=== PATIENT | male | born 1985 | race Caucasian/White ===

== ENCOUNTER 2018-09-27 23:40 | Inpatient (IN) | payer MEDICARE, OTHER ==
[~2018-09-27] VITALS: Ht 185.4 cm; Wt 104.0 kg
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
[2018-09-28] VITALS (7 sets, daily range): BP systolic 102–140; BP diastolic 61–87
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
--- NOTE | 2018-09-28 00:02 | NUR ---
ED Nurse Note: ERMD AT BEDSIDE FOR WOUND CARE
--- NOTE | 2018-09-28 00:10 | NUR ---
ED Nurse Note: iv access established. blood and urine collected; sent down to lab.
[2018-09-28 00:24] LABS: BASOPHILS % (AUTO) 0.8 % (0.0-2.0); HEMATOCRIT 49.5 % (42.0-52.0); HEMOGLOBIN 16.7 G/DL (14.2-18.0); LYMPHOCYTES % (AUTO) 24.7 % (20.0-45.0); MEAN CORPUSCULAR VOLUME 92 FL (80-99); MONOCYTES % (AUTO) 5.9 % (1.0-10.0); NEUTROPHILS % (AUTO) 67.6 % (45.0-75.0); PLATELET COUNT 358 K/UL (150-450); RED CELL DISTRIBUTION WIDTH 12.8 % (11.6-14.8); WHITE BLOOD COUNT 12.7 K/UL (4.8-10.8)
[2018-09-28 00:28] LABS: APPEARANCE,URINE CLEAR; BILIRUBIN, URINE NEGATIVE (NEGATIVE); COLOR,URINE PALE YELLOW; GLUCOSE, URINE (UA) NEGATIVE (NEGATIVE); KETONES,URINE NEGATIVE (NEGATIVE); LEUKOCYTE ESTERASE ,URINE NEGATIVE (NEGATIVE); NITRITE,URINE NEGATIVE (NEGATIVE); PH,URINE 7 (4.5-8.0); PROTEIN,URINE NEGATIVE (NEGATIVE); UROBILINOGEN,URINE NORMAL MG/DL (0.0-1.0)
[2018-09-28 00:30] LABS: ANION GAP 11 mmol/L (5-15); BLOOD UREA NITROGEN 12 mg/dL (7-18); CALCIUM 8.5 MG/DL (8.5-10.1); CARBON DIOXIDE 25 MMOL/L (21-32); CHLORIDE 111 MMOL/L (98-107); CREATININE 1.1 MG/DL (0.55-1.30); POTASSIUM 3.2 MMOL/L (3.5-5.1); SODIUM 147 MMOL/L (136-145)
[2018-09-28 00:35] LABS: ALANINE AMINOTRANSFERASE 214 U/L (12-78); ALBUMIN/GLOBULIN RATIO 1.1 (1.0-2.7); ALKALINE PHOSPHATASE 141 U/L (46-116); ASPARTATE AMINO TRANSFERASE 101 U/L (15-37); BILIRUBIN,TOTAL 0.4 MG/DL (0.2-1.0)
--- NOTE | 2018-09-28 01:00 | NUR ---
ED Nurse Note: patient resting comfortably in bed with nad. vss. respirations even and unlabored.
--- NOTE | 2018-09-28 02:56 | NUR ---
ED Nurse Note: MRSA VRE CRE SWAB COLLECTED; SENT DOWN TO LAB. BELONGINGS LIST COMPLETED.
--- NOTE | 2018-09-28 03:10 | NUR ---
NURSE NOTES: Received report from ER nurse Ramila White RN over the phone.
[2018-09-28] MEDS ORDERED: NICODERM CQ1 EAC3 TD (03:25)
[2018-09-28] MEDS ORDERED: BUSPAR10 MG ORAL (03:25)
[2018-09-28] MEDS ORDERED: INDERAL LA60 MG ORAL (03:25)
[2018-09-28] MEDS ORDERED: SEROQUEL200 MG ORAL (03:25)
[2018-09-28] MEDS ORDERED: ACETAMINOPHEN325 M1 ORAL (03:25)
[2018-09-28] MEDS ORDERED: NORCO 5-325 TA1 EACH ORAL (03:25)
[2018-09-28] MEDS ORDERED: BUPROPION XL300 MG ORAL (03:25)
[2018-09-28] MEDS ORDERED: ADDERAL20 MG ORAL (03:25)
[2018-09-28] MEDS ORDERED: TUMS300 MG PO (03:25)
[2018-09-28] MEDS ORDERED: MILK OF MA2400 MG/10 ORAL (03:25)
[2018-09-28] MEDS ORDERED: IBUPROFEN600 MG ORAL (03:25)
--- NOTE | 2018-09-28 03:30 | NUR ---
TRANSFER TO FLOOR: Patient transferred to [address] as ordered, per md lisa. Report given to allan don. belongings list completed with receiving rn.
--- NOTE | 2018-09-28 03:35 | NUR ---
NURSE NOTES: Received patient via biotechnician. Patient A&Ox1, to name, confused. Ambulatory. On room air, no signs of distress or labored breathing. Iv intact, patent, and saline locked. Belongings checked and accounted. Bed in lowest position with call light in reach. Will contact MD for orders.
[2018-09-28] MEDS ORDERED: LORazepam Inj 2mg/ml 1ml IV PRN (07:00)
[2018-09-28] MEDS ORDERED: Miralax 17gm pkt ORAL PRN (07:00)
--- NOTE | 2018-09-28 08:03 | NUR ---
NURSE NOTES: Received report from MAN [place]. Pt in bed, awake, talkative, confused, provided reorientation to pt, discussed plan of care for pt, no apparent distress noted, bed in lowest position, call light within reach.
--- NOTE | 2018-09-28 08:24 | NUR ---
HAND-OFF: Report given to MAN Poe.
--- NOTE | 2018-09-28 08:39 | NUR ---
NURSE NOTES: Notified Dr.Hung Bliss 3.2, asked about replacing
[2018-09-28] MEDS: Folic Acid 1 MG, Magnesium Sulfate 2,000 MG, Multivitamin - 12 Injection 10 ML in NS w/... IV SCH (09:12)
[2018-09-28] MEDS: Thiamine 100mg in D5W 55ml IVPB SCH (09:12)
[2018-09-28] MEDS: Morphine Sulfate 2mg/ml Inj(IV/IM USE ONLY) IVP PRN ×4 (09:14→22:03)
[2018-09-28] MEDS: Heparin 5000 units/ml inj SUBQ SCH ×2 (09:24→21:06)
[2018-09-28] MEDS ORDERED: Milk of Magnesia 30ml Ud ORAL PRN (11:00)
[2018-09-28] MEDS: BusPIRone 5mg Tab ORAL SCH ×2 (11:30→17:21)
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
[2018-09-28] MEDS: BuPROPion XL 150mg tab ORAL SCH (12:34)
--- NOTE | 2018-09-28 16:53 | NUR ---
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 SI:ALCOHOL INTOXICATION . LACERATION OF RIGHT FOREARM VS: BP 140/80, P 82, T 98.4, RR 20, SpO2 97 WBC 12.7, Na 147, K 3.2, AST 101, ALT 214, ALP 141 IS:SALINE FLUSH 10mL WOUND CARE ADMITTED TO MED/SURG DCP: RETURN TO [facility]
--- NOTE | 2018-09-28 17:25 | NUR ---
NURSE NOTES: Pt stating he takes Seroquel TID, Med Recon shows QHS. Notified Dr. López and asked if he would like to change order.
[2018-09-28] MEDS: Propranolol 10mg tab ORAL SCH (17:52)
--- NOTE | 2018-09-28 19:45 | NUR ---
NURSE NOTES: Was unable to make 1822 reassessment for morphine. Was not on the floor at that time.
--- NOTE | 2018-09-28 19:45 | NUR ---
NURSE NOTES: Received report from MAN Poe. Patient alert, awake, and verbally responsive to let his needs known. Breathing unlabored and evenly on room air without signs of distress, discomfort, or SOB noted at this time. Denies pain at this time. Noted IV on left antecubital intact, dry, patent running fluid as ordered. Noted lacerations on the bilateral arms. Bed placed at the lowest with brakes and side rails up x 2 for safety and assist for bed mobility. Call light placed within reach. Will continue to monitor and provide care as ordered.
--- NOTE | 2018-09-28 19:54 | NUR ---
HAND-OFF: Report given to MAN Solares.
--- NOTE | 2018-09-28 21:00 | NUR ---
NURSE NOTES: Patient's seroquel order TID was scheduled for 0900/1300/1800 originally, but according to patient he had his seroquel everyday at 2100 and he needs that night dose. Patient only had one dose of today's TID order at 1752 on the unit. Will relay this information to Dr. López and follow up with new orders to be given.
[2018-09-28] MEDS ORDERED: QUEtiapine 200mg tab ORAL ONE (23:15)
--- NOTE | 2018-09-28 23:30 | NUR ---
NURSE NOTES: Patient verbalized need for prescribed medication seroquel at night time (hours of sleep). Contacted MD to clarify the patient's seroquel schedule at 2136. Okay to give dose at night and change seroquel schedule per patient preferences per MD order. Placed once order for tonight's dose and edited patient's seroquel TID schedule to 0900/1700/2100. Confirmed verification with pharmacist. Will continue to monitor and provide care as ordered.
[2018-09-29] VITALS: BP 125/81
--- NOTE | 2018-09-29 03:30 | Consultation ---
DATE OF CONSULTATION: 09/28/2018 CONSULTING PHYSICIAN: Andry Julien M.D. HISTORY OF PRESENT ILLNESS: This is a 33-year-old male patient who came in because of alcohol intoxication. He is very irritable, confused, but he came in because he is belligerent and extreme mood lability and he needs to be detoxed off alcohol because he left his detention at [employer] . For the past few days, he is confused, disorganized. Came in with a laceration on his wrist. Now, he has feelings of helplessness, hopelessness, low energy, poor appetite, loss of interest in activity. However, since he has poor insight into the severity of his mood disorder, he has had multiple psychiatric admissions. I have seen him multiple times in multiple [facility]. He still seems to minimize his mood disorder. MEDICAL HISTORY: This patient has neuropathy, lower extremity weakness with ambulation. ALLERGIES: No known drug allergies. PSYCHOTROPIC MEDICATIONS ON ADMISSION: He is on Wellbutrin XL 450 mg daily, Seroquel 300 mg nightly, and BuSpar 30 mg twice a day. SUBSTANCE ABUSE HISTORY: History of chronic alcohol abuse. . FAMILY PSYCHIATRIC HISTORY: Denies. PAIN ASSESSMENT: 05/22 pain. DEVELOPMENTAL PROBLEMS: Denies. SOCIAL HISTORY: The patient is currently living in [facility]. Financially supported by [facility] and Medicare. PSYCHIATRIC HISTORY: Multiple psychiatric admissions, previous diagnosis as above. STRENGTHS: He is motivated to get better. Has a place to live. WEAKNESSES: He is impulsive, minimal support, poor finances. MENTAL STATUS EXAMINATION: This is a 33-year-old male. Appearance is disheveled. Attitude, irritable and agitated. Affect is labile. Intellect is poor because he does not know current events, does not know last four presidents. Mood, depressed and anxious. Motor activity, psychomotor agitation. Attention span is poor because he cannot do serial sevens or spell world backwards. Orientation x2. He is oriented to person and place, not to time and situation. Speech is pressured, nonsensical. Thought process, disorganized and illogical. Thought content, he has auditory hallucinations and paranoid delusions. Perception is poor because he has perceptual disturbance such as auditory hallucinations and paranoid delusions. Abstract reasoning is poor because he does not understand proverbs, only has concrete thinking. Insight is poor because he has underlying psych disorder. Judgment is poor because he does not accept the consequences of his actions decision making. He denies suicidal or homicidal ideations. His short-term memory 3/3 word recall after 5 minutes delay with good short-term memory. Long-term memory is intact based on the knowledge of long-term events in his life such as the high [employer] school that he went to. Gait is normal limits. Has no abnormal movements. DIAGNOSES: PRIMARY: Bipolar. SECONDARY: Alcohol abuse. MEDICAL: Neuropathy, lower extremity weakness, wrist laceration. PSYCHOSOCIAL STRESSORS: Financial function impairment, severe. PLAN: Continue this patient on Seroquel 300 mg nightly to stabilize his mood and Wellbutrin XL 450 mg a day for depression. Continue his BuSpar 30 mg twice a day for anxiety. 20 minutes of cognitive behavioral therapy to help him identify his automatic negative thoughts, help him convert his negative thoughts to more positive thoughts to reduce depression, anxiety, and mood lability. Chart reviewed. Discussed with staff. Seen and assessed at bedside. Andry Julien M.D. DR: OLGA JOB#: [id number] CC:
[2018-09-29 04:00] VITALS: BP 134/79
--- NOTE | 2018-09-29 06:23 | NUR ---
NURSE NOTES: Patient refused his labs. Attempted more than three times to encourage patient to participate in lab procedure but patient strongly refused to draw labs. Laboratory personnel was with RN all times. He attempted several times and RN attempted several times to encourage patient to participate. Call light placed within reach. Will continue to monitor and provide other cares as ordered.
--- NOTE | 2018-09-29 07:39 | NUR ---
HAND-OFF: Report given to MAN Temple. Patient in stable condition.
--- NOTE | 2018-09-29 07:45 | NUR ---
NURSE NOTES: Received patient in bed, asleep @ this time. Breathing is even and unlabored. No s/s of pain or discomfort. bed is in lowest position and locked. Call light within reach. Will continue plan of care.
[2018-09-29 08:00] VITALS: BP 125/71
[2018-09-29] MEDS: Propranolol 10mg tab ORAL SCH ×2 (09:00→17:58)
[2018-09-29] MEDS: Heparin 5000 units/ml inj SUBQ SCH ×2 (09:00→21:00)
--- NOTE | 2018-09-29 09:37 | NUR ---
*-* INSURANCE *-* ALL CLINICALS HAVE BEEN FAXED TO: [facility] PLEASE FAX THE REVIEW/CLINICAL NO DATA ANALYST ASSIGNED AT THIS TIME P- [phone] F- [phone]...REVIEW/CLINICAL
[2018-09-29] MEDS: BusPIRone 5mg Tab ORAL SCH ×2 (09:47→15:25)
[2018-09-29] MEDS: BuPROPion XL 150mg tab ORAL SCH (09:48)
[2018-09-29] MEDS: Thiamine 100mg in D5W 55ml IVPB SCH (09:49)
[2018-09-29] MEDS: Morphine Sulfate 2mg/ml Inj(IV/IM USE ONLY) IVP PRN ×4 (09:49→21:58)
[2018-09-29] MEDS: Folic Acid 1 MG, Magnesium Sulfate 2,000 MG, Multivitamin - 12 Injection 10 ML in NS w/... IV SCH (09:50)
--- NOTE | 2018-09-29 10:00 | NUR ---
NURSE NOTES: patient refused nicotine patch, heparin injection and blood pressure med. RN explained the risks and benefits. Given morphine due to pain on bilateral hands. VSS.
[2018-09-29 12:00] VITALS: BP 131/80
--- NOTE | 2018-09-29 12:11 | Infectious Diseases Prog Note ---
Assessment/Plan Assessment/Plan Abx: None Assessment: Mild leukocytosis- likely reactive- no evident infectious process Afebrile u/a neg Ethanol intoxication Aggressive behavior -UDS +marihuana -Ethanol 365 mg/dl HTN seizure disorder psychiatric disorder substance abuse NH resident Plan: -Continue to monitor off abx -f/u cx -Monitor CBC/CMP, temperatures -Psych eval Thank you for this consultation. Will continue to follow along with you. Discussed with RN. Subjective Allergies: Coded Allergies: ACETAMINOPHEN (Verified Allergy, Unknown, 09/27/18) HALOPERIDOL (Verified Allergy, Unknown, 09/27/18) Subjective afebrile off abx no labs today yet Objective Vital Signs Last 24 Hour Vital Signs Date Time Temp Pulse Resp B/P (MAP) Pulse Ox O2 Delivery O2 Flow Rate FiO2 09/29/18 09:00 Room Air 09/29/18 09:00 75 125/71 09/29/18 08:00 97.4 76 16 125/71 (89) 96 09/29/18 04:00 98.1 75 16 134/79 (97) 96 09/29/18 00:00 97.7 77 18 125/81 (96) 97 09/28/18 21:00 Room Air 09/28/18 20:00 98.1 76 18 127/87 (100) 98 09/28/18 17:52 88 121/74 09/28/18 15:23 98.1 88 18 121/74 (90) 98 09/28/18 13:53 98.4 Height (Feet): 6 Height (Inches): 1.00 Weight (Pounds): 229 Objective General Appearance: well appearing, no apparent distress, other - Somnolent Head: normocephalic, atraumatic Eyes: bilateral eye PERRL, bilateral eye EOMI ENT: hearing grossly normal, normal pharynx Neck: full range of motion, supple, no meningismus Respiratory: chest non-tender, lungs clear, normal breath sounds Cardiovascular #1: regular rate, rhythm, no murmur Gastrointestinal: normal bowel sounds, non tender, no mass, no organomegaly, no bruit, non-distended Musculoskeletal: back normal, normal range of motion, other - Right forearm: There is a 4 cm laceration to the mid forearm. No foreign body. No tendon involvement. Left upper forearm: Small superficial skin abrasion. Psychiatric: mood/affect sandra Microbiology Date/Time Source Procedure Growth Status 09/28/18 03:00 Rectum Received Current Medications Medications (Trade) Dose Ordered Sig/Ana Route PRN Reason Start Time Stop Time Status Last Admin Dose Admin Bupropion HCl (Wellbutrin XL) 450 mg DAILY ORAL 09/28/18 12:00 10/28/18 11:59 09/29/18 09:48 Buspirone HCl (Buspar) 30 mg BID ORAL 09/28/18 11:00 10/28/18 10:59 09/29/18 09:47 Chlordiazepoxide (Librium) 25 mg Q6H PRN ORAL Agitation 09/28/18 06:50 10/05/18 06:49 Dextrose (Dextrose 50%) 25 ml Q30M PRN IV Hypoglycemia 09/28/18 07:00 10/28/18 06:59 Dextrose (Dextrose 50%) 50 ml Q30M PRN IV Hypoglycemia 09/28/18 07:00 10/28/18 06:59 Folic Acid 1 mg/ Magnesium Sulfate 2000 mg/ Multivitamins 10 ml/Potassium Chloride/Sodium Chloride 1,014.2 ml @ 124.876 mls/hr Q24H IV 09/28/18 09:00 10/28/18 08:59 09/29/18 09:50 Heparin Sodium (Porcine) (Heparin 5000 units/ml) 5,000 units EVERY 12 HOURS SUBQ 09/28/18 09:00 10/28/18 08:59 09/28/18 21:06 Lorazepam (Ativan 2mg/ml 1ml) 2 mg Q1H PRN IV seizures 09/28/18 07:00 10/05/18 06:59 Magnesium Hydroxide (Mom) 30 ml DAILYPRN PRN ORAL Constipation 09/28/18 11:00 10/28/18 10:59 Morphine Sulfate (Morphine Sulfate) 1 mg Q4H PRN IVP For Pain 09/28/18 07:00 10/05/18 06:59 09/29/18 09:49 Nicotine (Nicoderm) 1 patch DAILY TDERMAL 09/29/18 09:00 10/29/18 08:59 Ondansetron HCl (Zofran) 4 mg Q6H PRN IVP Nausea & Vomiting 09/28/18 07:00 10/28/18 06:59 Polyethylene Glycol (Miralax) 17 gm HSPRN PRN ORAL Constipation 09/28/18 07:00 10/28/18 06:59 Propranolol HCl (Inderal) 10 mg BID ORAL 09/28/18 18:00 10/28/18 17:59 09/28/18 17:52 Quetiapine Fumarate (SEROquel) 300 mg 0900,1700,2100 ORAL 09/29/18 09:00 10/29/18 08:59 09/29/18 09:58 Thiamine HCl 100 mg/Dextrose 56 ml @ 112 mls/hr Q24H IVPB 09/28/18 09:00 10/28/18 08:59 09/29/18 09:49 Zolpidem Tartrate (Ambien) 5 mg HSPRN PRN ORAL Insomnia 09/28/18 07:00 10/05/18 06:59 Dorys Duke M.D. Sep 29, 2018 12:11
--- NOTE | 2018-09-29 12:32 | NUR ---
Social Service Note MERLIN confirmed with [facility] they will be unable to accept patient due to continued ETOH use and aggressive behavior. Patient was placed at [facility] from [facility]. Patient is chronically homeless, mental health disorder of schizophrenia, bipolar disorder, anxiety and depressive disorder, along with substance abuse. The address the patient provided to [facility] is for a [employer]. Patient doesn't want to use SSI income for board and care. Patient states he doesn't want rules. Patient's mother Gary Ledezma [phone], left. Patient indicated going in and out of psychiatric facilities for many years. Patient states he is medication compliant however may not take medication while intoxicated. Patient denies SI/HI but states he feels hopeless and anxious. MERLIN informed Dr. Medina and Dr. Julien that patient is unable to return to [facility] however [facility] would be a possible option for placement. No indication at this time for referral to [facility]. Will await further assessment of Dr. Julien. MERLIN discussed with CM. Addendum: 09/29/18 at 1400 by TERRY ZELAYA MERLIN spoke with patient's mother. Mother lives in [place] along with his whole family and 14 year old son. 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 Mother states patient was diagnosed with mental health disorder 21 years ago. Mother states now over the course of several years patient has moved around to various states and has lived on the streets. Patient came to [place] from [place] in January. Mother will continue to be supportive however will not support patient financial at this time. Mother has offered to be patient's payee however he has refused. Mother was upset to learn that patient would not be able to return to [facility]. Mother to be updated on placement upon discharge.
[2018-09-29] MEDS ORDERED: BusPIRone 5mg Tab ORAL SCH ×3 (14:00→18:00)
[2018-09-29 14:22] LABS: BASOPHILS % (AUTO) 0.6 % (0.0-2.0); EOSINOPHILS % (AUTO) 1.3 % (0.0-3.0); HEMATOCRIT 47.9 % (42.0-52.0); HEMOGLOBIN 15.8 G/DL (14.2-18.0); LYMPHOCYTES % (AUTO) 21.7 % (20.0-45.0); MEAN CORPUSCULAR VOLUME 93 FL (80-99); MONOCYTES % (AUTO) 6.7 % (1.0-10.0); NEUTROPHILS % (AUTO) 69.6 % (45.0-75.0); PLATELET COUNT 321 K/UL (150-450); RED BLOOD COUNT 5.14 M/UL (4.70-6.10); RED CELL DISTRIBUTION WIDTH 12.9 % (11.6-14.8); WHITE BLOOD COUNT 7.7 K/UL (4.8-10.8)
--- NOTE | 2018-09-29 14:38 | General Progress Note ---
Assessment/Plan Problem List: (1) Psychosis ICD Codes: F29 - Unspecified psychosis not due to a substance or known physiological condition SNOMED: 58476994 (2) Alcohol intoxication ICD Codes: F10.929 - Alcohol use, unspecified with intoxication, unspecified SNOMED: 77902227 Qualifiers: Qualified Codes: F10.920 - Alcohol use, unspecified with intoxication, uncomplicated (3) Agitation ICD Codes: R45.1 - Restlessness and agitation SNOMED: 843415019 (4) Laceration of forearm, right ICD Codes: S51.811A - Laceration without foreign body of right forearm, initial encounter SNOMED: 19358287086531317 Qualifiers: Qualified Codes: S51.811A - Laceration without foreign body of right forearm , initial encounter Status: stable, progressing Assessment/Plan: wound care detox cbc bmp am psyc transfer Subjective Constitutional: Reports: weakness Allergies: Coded Allergies: ACETAMINOPHEN (Verified Allergy, Unknown, 09/27/18) HALOPERIDOL (Verified Allergy, Unknown, 09/27/18) All Systems: reviewed and negative except above Subjective calm in bed Objective Last 24 Hour Vital Signs Date Time Temp Pulse Resp B/P (MAP) Pulse Ox O2 Delivery O2 Flow Rate FiO2 09/29/18 12:00 98.0 97 16 131/80 (97) 96 09/29/18 09:00 Room Air 09/29/18 09:00 75 125/71 09/29/18 08:00 97.4 76 16 125/71 (89) 96 09/29/18 04:00 98.1 75 16 134/79 (97) 96 09/29/18 00:00 97.7 77 18 125/81 (96) 97 09/28/18 21:00 Room Air 09/28/18 20:00 98.1 76 18 127/87 (100) 98 09/28/18 17:52 88 121/74 09/28/18 15:23 98.1 88 18 121/74 (90) 98 Intake and Output 09/28/18 09/29/18 19:00 07:00 Intake Total 1430.628 ml 1609.752 ml Balance 1430.628 ml 1609.752 ml Intake Oral 1000 ml 1360 ml IV Total 430.628 ml 249.752 ml # Voids 2 # Bowel Movements 1 Laboratory Tests 09/29/18 14:00: White Blood Count 7.7, Red Blood Count 5.14, Hemoglobin 15.8, Hematocrit 47.9, Mean Corpuscular Volume 93, Mean Corpuscular Hemoglobin 30.6, Mean Corpuscular Hemoglobin Concent 32.9, Red Cell Distribution Width 12.9, Platelet Count 321, Mean Platelet Volume 5.9L, Neutrophils (%) (Auto) 69.6, Lymphocytes (%) (Auto) 21.7, Monocytes (%) (Auto) 6.7, Eosinophils (%) (Auto) 1.3, Basophils (%) (Auto ) 0.6, Sodium Level [Pending], Potassium Level [Pending], Chloride Level [ Pending], Carbon Dioxide Level [Pending], Blood Urea Nitrogen [Pending], Creatinine [Pending], Estimat Glomerular Filtration Rate [Pending], Glucose Level [Pending], Calcium Level [Pending], Total Bilirubin [Pending], Aspartate Amino Transf (AST/SGOT) [Pending], Alanine Aminotransferase (ALT/SGPT) [Pending] , Alkaline Phosphatase [Pending], Total Protein [Pending], Albumin [Pending], Globulin [Pending] Height (Feet): 6 Height (Inches): 1.00 Weight (Pounds): 229 General Appearance: lethargic EENT: normal ENT inspection Neck: normal alignment Cardiovascular: normal peripheral pulses, normal rate, regular rhythm Respiratory/Chest: chest wall non-tender, lungs clear, normal breath sounds Abdomen: normal bowel sounds, non tender, soft Extremities: normal inspection Edema: no edema noted Arm (L), no edema noted Arm (R), no edema noted Leg (L), no edema noted Leg (R), no edema noted Pedal (L), no edema noted Pedal (R), no edema noted Generalized Neurologic: responsive, motor weakness Skin: normal pigmentation, warm/dry Javier Medina DO Sep 29, 2018 14:38
[2018-09-29 14:54] LABS: ALANINE AMINOTRANSFERASE 191 U/L (12-78); ALBUMIN 3.3 G/DL (3.4-5.0); ALKALINE PHOSPHATASE 149 U/L (46-116); ANION GAP 8 mmol/L (5-15); ASPARTATE AMINO TRANSFERASE 102 U/L (15-37); BILIRUBIN,TOTAL 0.7 MG/DL (0.2-1.0); BLOOD UREA NITROGEN 12 mg/dL (7-18); CALCIUM 9.1 MG/DL (8.5-10.1); CARBON DIOXIDE 26 MMOL/L (21-32); CHLORIDE 107 MMOL/L (98-107); CREATININE 1.1 MG/DL (0.55-1.30); POTASSIUM 4.4 MMOL/L (3.5-5.1); SODIUM 141 MMOL/L (136-145)
--- NOTE | 2018-09-29 15:30 | NUR ---
NURSE NOTES: Patient wanted to take buspar 30mg BID @ 9am and 12noon, but per pharmacist it is too close to give. Patient agrred to take buspar @8am and 2pm.
[2018-09-29 16:00] VITALS: BP 129/78
--- NOTE | 2018-09-29 17:00 | Progress Note ---
DATE: 09/29/2018 SUBJECTIVE: This is a 33-year-old male with alcohol intoxication. The patient has a history of bipolar 2, extremely mood labile. Mood lability has worsened secondary to the withdrawal symptoms. That is why, his attending has requested daily psychiatric consultation. MENTAL STATUS EXAMINATION: This is a 33-year-old male. Appearance is disheveled. Attitude, irritable and agitated. Affect, guarded and restricted. Intellect poor. Mood, depressed and anxious. Motor activity, psychomotor agitation. Attention span is poor. Orientation x2. Speech is low volume, slurred. Thought process, disorganized and illogical. Insight and judgment is poor. DIAGNOSIS: Bipolar 2. PLAN: Treat him with BuSpar 30 mg twice a day, Wellbutrin XL 450 mg daily, and Seroquel 300 mg at bedtime. Provide him with 20 minutes of cognitive behavioral therapy to help him identify his automatic negative thoughts, help him convert his negative thoughts to more positive thoughts to reduce depression, anxiety, and mood lability. Chart reviewed. Discussed with staff. Seen and assessed at bedside. 20 minutes of cognitive behavioral therapy provided. Andry Julien M.D. DR: OLGA JOB#: [id number] CC:
--- NOTE | 2018-09-29 17:00 | Pulmonology Progress Note ---
Assessment/Plan Problems: (1) Agitation (2) Alcohol intoxication (3) Laceration of forearm, right (4) Psychosis (5) ETOH abuse Assessment/Plan iv fluids librium resume psych meds check electrolytes in am Subjective ROS Limited/Unobtainable: No Allergies: Coded Allergies: ACETAMINOPHEN (Verified Allergy, Unknown, 09/27/18) HALOPERIDOL (Verified Allergy, Unknown, 09/27/18) Objective Last 24 Hour Vital Signs Date Time Temp Pulse Resp B/P (MAP) Pulse Ox O2 Delivery O2 Flow Rate FiO2 09/29/18 12:00 98.0 97 16 131/80 (97) 96 09/29/18 09:00 Room Air 09/29/18 09:00 75 125/71 09/29/18 08:00 97.4 76 16 125/71 (89) 96 09/29/18 04:00 98.1 75 16 134/79 (97) 96 09/29/18 00:00 97.7 77 18 125/81 (96) 97 09/28/18 21:00 Room Air 09/28/18 20:00 98.1 76 18 127/87 (100) 98 09/28/18 17:52 88 121/74 Intake and Output 09/28/18 09/29/18 19:00 07:00 Intake Total 1430.628 ml 1609.752 ml Balance 1430.628 ml 1609.752 ml Intake Oral 1000 ml 1360 ml IV Total 430.628 ml 249.752 ml # Voids 2 # Bowel Movements 1 Objective General Appearance: WD/WN HEENT: normocephalic, atraumatic Respiratory/Chest: chest wall non-tender, lungs clear, normal breath sounds Breasts: no masses Cardiovascular: normal peripheral pulses, normal rate Abdomen: normal bowel sounds, soft, non tender Genitourinary: normal external genitalia Extremities: no cyanosis 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 Microbiology Date/Time Source Procedure Growth Status 09/28/18 03:00 Rectum Received Laboratory Tests 09/29/18 14:00: White Blood Count 7.7, Red Blood Count 5.14, Hemoglobin 15.8, Hematocrit 47.9, Mean Corpuscular Volume 93, Mean Corpuscular Hemoglobin 30.6, Mean Corpuscular Hemoglobin Concent 32.9, Red Cell Distribution Width 12.9, Platelet Count 321, Mean Platelet Volume 5.9L, Neutrophils (%) (Auto) 69.6, Lymphocytes (%) (Auto) 21.7, Monocytes (%) (Auto) 6.7, Eosinophils (%) (Auto) 1.3, Basophils (%) (Auto ) 0.6, Sodium Level 141, Potassium Level 4.4, Chloride Level 107, Carbon Dioxide Level 26, Anion Gap 8, Blood Urea Nitrogen 12, Creatinine 1.1, Estimat Glomerular Filtration Rate > 60, Glucose Level 107H, Calcium Level 9.1, Total Bilirubin 0.7, Aspartate Amino Transf (AST/SGOT) 102H, Alanine Aminotransferase (ALT/SGPT) 191H, Alkaline Phosphatase 149H, Total Protein 6.7, Albumin 3.3L, Globulin 3.4, Albumin/Globulin Ratio 1.0 Current Medications Medications (Trade) Dose Ordered Sig/Ana Route PRN Reason Start Time Stop Time Status Last Admin Dose Admin Bupropion HCl (Wellbutrin XL) 450 mg DAILY ORAL 09/28/18 12:00 10/28/18 11:59 09/29/18 09:48 Buspirone HCl (Buspar) 30 mg BID@0800,1400 ORAL 09/29/18 15:15 10/29/18 15:14 09/29/18 15:25 Chlordiazepoxide (Librium) 25 mg Q6H PRN ORAL Agitation 09/28/18 06:50 10/05/18 06:49 Dextrose (Dextrose 50%) 25 ml Q30M PRN IV Hypoglycemia 09/28/18 07:00 10/28/18 06:59 Dextrose (Dextrose 50%) 50 ml Q30M PRN IV Hypoglycemia 09/28/18 07:00 10/28/18 06:59 Folic Acid 1 mg/ Magnesium Sulfate 2000 mg/ Multivitamins 10 ml/Potassium Chloride/Sodium Chloride 1,014.2 ml @ 124.876 mls/hr Q24H IV 09/28/18 09:00 10/28/18 08:59 09/29/18 09:50 Heparin Sodium (Porcine) (Heparin 5000 units/ml) 5,000 units EVERY 12 HOURS SUBQ 09/28/18 09:00 10/28/18 08:59 09/28/18 21:06 Lorazepam (Ativan 2mg/ml 1ml) 2 mg Q1H PRN IV seizures 09/28/18 07:00 10/05/18 06:59 Magnesium Hydroxide (Mom) 30 ml DAILYPRN PRN ORAL Constipation 09/28/18 11:00 10/28/18 10:59 Morphine Sulfate (Morphine Sulfate) 1 mg Q4H PRN IVP For Pain 09/28/18 07:00 10/05/18 06:59 09/29/18 13:59 Nicotine (Nicoderm) 1 patch DAILY TDERMAL 09/29/18 09:00 10/29/18 08:59 Ondansetron HCl (Zofran) 4 mg Q6H PRN IVP Nausea & Vomiting 09/28/18 07:00 10/28/18 06:59 Polyethylene Glycol (Miralax) 17 gm HSPRN PRN ORAL Constipation 09/28/18 07:00 10/28/18 06:59 Propranolol HCl (Inderal) 10 mg BID ORAL 09/28/18 18:00 10/28/18 17:59 09/28/18 17:52 Quetiapine Fumarate (SEROquel) 300 mg 0900,1700,2100 ORAL 09/29/18 09:00 10/29/18 08:59 09/29/18 09:58 Thiamine HCl 100 mg/Dextrose 56 ml @ 112 mls/hr Q24H IVPB 09/28/18 09:00 10/28/18 08:59 09/29/18 09:49 Zolpidem Tartrate (Ambien) 5 mg HSPRN PRN ORAL Insomnia 09/28/18 07:00 10/05/18 06:59 Na López MD Sep 29, 2018 17:00
--- NOTE | 2018-09-29 17:24 | NUR ---
SENIOR ASP NET DEVELOPERPATIENT REGISTRAR SI:ALCOHOL INTOXICATION . LACERATION OF RIGHT FOREARM VS: BP 131/80, P 75, T 98.1, RR 18, SpO2 97 GLUCOSE 107, AST 101, ALT 214, ALP 141 IS:BUSPAR 30mg MORPHINE 1mg BANANA BAG 1,014.2ml IV THIAMINE 56ml IVPB WELLBUTRIN 450mg BUSPAR 30mg MED/SURG STATUS
--- NOTE | 2018-09-29 19:40 | NUR ---
HAND-OFF: Report given to Debora.
--- NOTE | 2018-09-29 20:07 | NUR ---
NURSE NOTES: Patient in bed alert, awake, and verbally responsive ambrocio make needs known. No s/s respiratory distress noted. Patient asked when pain medicine can be given, nurse explained it can be given at 2200. IV on left antecubital in place. Bed in lowest position, locked, call light placed within reach. Will continue to monitor.
[2018-09-29 20:18] VITALS: BP 114/72
--- NOTE | 2018-09-29 20:56 | NUR ---
NURSE NOTES: Patient refused heparin injection. RN explained the risks and benefits.
--- NOTE | 2018-09-29 22:36 | NUR ---
NURSE NOTES: Patient wanted to be disconnected from the fluids at this time. RN explained the benefits, patient still adamant on being disconnected.
--- NOTE | 2018-09-30 07:40 | NUR ---
HAND-OFF: Report given to NEMO KELLEY RN.
[2018-09-30 08:00] VITALS: BP 123/80
[2018-09-30] MEDS: BusPIRone 5mg Tab ORAL SCH ×2 (08:29→13:19)
[2018-09-30] MEDS: Propranolol 10mg tab ORAL SCH ×2 (08:30→17:44)
[2018-09-30] MEDS: Heparin 5000 units/ml inj SUBQ SCH ×2 (08:31→20:00)
[2018-09-30] MEDS: BuPROPion XL 150mg tab ORAL SCH (08:31)
[2018-09-30] MEDS: Folic Acid 1 MG, Magnesium Sulfate 2,000 MG, Multivitamin - 12 Injection 10 ML in NS w/... IV SCH ×2 (08:31→14:25)
--- NOTE | 2018-09-30 08:31 | General Progress Note ---
Assessment/Plan Problem List: (1) Psychosis ICD Codes: F29 - Unspecified psychosis not due to a substance or known physiological condition SNOMED: 62791497 (2) Alcohol intoxication ICD Codes: F10.929 - Alcohol use, unspecified with intoxication, unspecified SNOMED: 18254560 Qualifiers: Qualified Codes: F10.920 - Alcohol use, unspecified with intoxication, uncomplicated (3) Agitation ICD Codes: R45.1 - Restlessness and agitation SNOMED: 821810821 (4) Laceration of forearm, right ICD Codes: S51.811A - Laceration without foreign body of right forearm, initial encounter SNOMED: 06364586417300882 Qualifiers: Qualified Codes: S51.811A - Laceration without foreign body of right forearm , initial encounter Status: stable, progressing Assessment/Plan: wound care detox cbc bmp am psyc transfer Subjective Constitutional: Reports: weakness Allergies: Coded Allergies: ACETAMINOPHEN (Verified Allergy, Unknown, 09/27/18) HALOPERIDOL (Verified Allergy, Unknown, 09/27/18) All Systems: reviewed and negative except above Subjective calm in bed Objective Last 24 Hour Vital Signs Date Time Temp Pulse Resp B/P (MAP) Pulse Ox O2 Delivery O2 Flow Rate FiO2 09/30/18 08:00 98.4 69 18 123/80 (94) 98 09/29/18 22:28 98.5 09/29/18 21:58 Room Air 09/29/18 20:18 98.5 85 18 114/72 (86) 95 09/29/18 17:58 82 134/85 09/29/18 16:00 98.2 88 17 129/78 (95) 99 09/29/18 12:00 98.0 97 16 131/80 (97) 96 09/29/18 09:00 Room Air 09/29/18 09:00 75 125/71 Intake and Output 09/29/18 09/30/18 19:00 07:00 Intake Total 1224.876 ml 249.752 ml Output Total 0 ml Balance 1224.876 ml 249.752 ml Intake Oral 1100 ml IV Total 124.876 ml 249.752 ml Output Urine Total 0 ml # Voids 5 3 # Bowel Movements 1 Laboratory Tests 09/29/18 14:00: White Blood Count 7.7, Red Blood Count 5.14, Hemoglobin 15.8, Hematocrit 47.9, Mean Corpuscular Volume 93, Mean Corpuscular Hemoglobin 30.6, Mean Corpuscular Hemoglobin Concent 32.9, Red Cell Distribution Width 12.9, Platelet Count 321, Mean Platelet Volume 5.9L, Neutrophils (%) (Auto) 69.6, Lymphocytes (%) (Auto) 21.7, Monocytes (%) (Auto) 6.7, Eosinophils (%) (Auto) 1.3, Basophils (%) (Auto ) 0.6, Sodium Level 141, Potassium Level 4.4, Chloride Level 107, Carbon Dioxide Level 26, Anion Gap 8, Blood Urea Nitrogen 12, Creatinine 1.1, Estimat Glomerular Filtration Rate > 60, Glucose Level 107H, Calcium Level 9.1, Total Bilirubin 0.7, Aspartate Amino Transf (AST/SGOT) 102H, Alanine Aminotransferase (ALT/SGPT) 191H, Alkaline Phosphatase 149H, Total Protein 6.7, Albumin 3.3L, Globulin 3.4, Albumin/Globulin Ratio 1.0 Height (Feet): 6 Height (Inches): 1.00 Weight (Pounds): 229 General Appearance: lethargic EENT: normal ENT inspection Neck: normal alignment Cardiovascular: normal peripheral pulses, normal rate, regular rhythm Respiratory/Chest: chest wall non-tender, lungs clear, normal breath sounds Abdomen: normal bowel sounds, non tender, soft Extremities: normal inspection Edema: no edema noted Arm (L), no edema noted Arm (R), no edema noted Leg (L), no edema noted Leg (R), no edema noted Pedal (L), no edema noted Pedal (R), no edema noted Generalized Neurologic: motor weakness Skin: normal pigmentation, warm/dry Javier Medina DO Sep 30, 2018 08:31
[2018-09-30] MEDS: Thiamine 100mg in D5W 55ml IVPB SCH (09:18)
[2018-09-30] MEDS: Morphine Sulfate 2mg/ml Inj(IV/IM USE ONLY) IVP PRN ×4 (09:19→22:07)
--- NOTE | 2018-09-30 11:19 | NUR ---
NURSE NOTES: pt in bed with no sob nor in any form of distress noted. Tolerating well on IVF. pain meds given as needed. will continue to monitor.
[2018-09-30 12:00] VITALS: BP 140/79
--- NOTE | 2018-09-30 13:14 | NUR ---
*-* INSURANCE *-* ALL CLINICALS HAVE BEEN FAXED TO: [facility] PLEASE FAX THE REVIEW/CLINICAL NO SAUSAGE LINKER ASSIGNED AT THIS TIME P- [phone] F- [phone]...REVIEW/CLINICAL
--- NOTE | 2018-09-30 14:16 | Pulmonology Progress Note ---
Assessment/Plan Problems: (1) Agitation (2) Alcohol intoxication (3) Laceration of forearm, right (4) Psychosis (5) ETOH abuse Assessment/Plan iv fluids librium resume psych meds dc to longterm Subjective ROS Limited/Unobtainable: No Constitutional: Reports: no symptoms HEENT: Repors: no symptoms Allergies: Coded Allergies: ACETAMINOPHEN (Verified Allergy, Unknown, 09/27/18) HALOPERIDOL (Verified Allergy, Unknown, 09/27/18) Objective Last 24 Hour Vital Signs Date Time Temp Pulse Resp B/P (MAP) Pulse Ox O2 Delivery O2 Flow Rate FiO2 09/30/18 12:00 98.8 96 18 140/79 (99) 97 09/30/18 09:49 98.4 09/30/18 09:00 Room Air 09/30/18 08:30 69 123/80 09/30/18 08:00 98.4 69 18 123/80 (94) 98 09/29/18 21:58 Room Air 09/29/18 20:18 98.5 85 18 114/72 (86) 95 09/29/18 17:58 82 134/85 09/29/18 16:00 98.2 88 17 129/78 (95) 99 Intake and Output 09/29/18 09/30/18 19:00 07:00 Intake Total 1224.876 ml 249.752 ml Output Total 0 ml Balance 1224.876 ml 249.752 ml Intake Oral 1100 ml IV Total 124.876 ml 249.752 ml Output Urine Total 0 ml # Voids 5 3 # Bowel Movements 1 Objective General Appearance: WD/WN HEENT: normocephalic, atraumatic Respiratory/Chest: chest wall non-tender, lungs clear, normal breath sounds Breasts: no masses Cardiovascular: normal peripheral pulses, normal rate Abdomen: normal bowel sounds, soft, non tender Genitourinary: normal external genitalia Extremities: no cyanosis 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 Complete 09/28/18 03:00 Rectum - Final NO CARBAPENEM-RESISTANT ENTEROBACTERI... Complete 09/28/18 03:00 Rectum VRE Culture - Final NO VANCOMYCIN RESISTANT ENTEROCOCCUS ... Complete Current Medications Medications (Trade) Dose Ordered Sig/Ana Route PRN Reason Start Time Stop Time Status Last Admin Dose Admin Bupropion HCl (Wellbutrin XL) 450 mg DAILY ORAL 09/28/18 12:00 10/28/18 11:59 09/30/18 08:31 Buspirone HCl (Buspar) 30 mg BID@0800,1400 ORAL 09/29/18 15:15 10/29/18 15:14 09/30/18 13:19 Chlordiazepoxide (Librium) 25 mg Q6H PRN ORAL Agitation 09/28/18 06:50 10/05/18 06:49 Dextrose (Dextrose 50%) 25 ml Q30M PRN IV Hypoglycemia 09/28/18 07:00 10/28/18 06:59 Dextrose (Dextrose 50%) 50 ml Q30M PRN IV Hypoglycemia 09/28/18 07:00 10/28/18 06:59 Folic Acid 1 mg/ Magnesium Sulfate 2000 mg/ Multivitamins 10 ml/Potassium Chloride/Sodium Chloride 1,014.2 ml @ 124.876 mls/hr Q24H IV 09/28/18 09:00 10/28/18 08:59 09/29/18 09:50 Heparin Sodium (Porcine) (Heparin 5000 units/ml) 5,000 units EVERY 12 HOURS SUBQ 09/28/18 09:00 10/28/18 08:59 09/28/18 21:06 Lorazepam (Ativan 2mg/ml 1ml) 2 mg Q1H PRN IV seizures 09/28/18 07:00 10/05/18 06:59 Magnesium Hydroxide (Mom) 30 ml DAILYPRN PRN ORAL Constipation 09/28/18 11:00 10/28/18 10:59 Morphine Sulfate (Morphine Sulfate) 1 mg Q4H PRN IVP For Pain 09/28/18 07:00 10/05/18 06:59 09/30/18 13:29 Nicotine (Nicoderm) 1 patch DAILY TDERMAL 09/29/18 09:00 10/29/18 08:59 Ondansetron HCl (Zofran) 4 mg Q6H PRN IVP Nausea & Vomiting 09/28/18 07:00 10/28/18 06:59 Polyethylene Glycol (Miralax) 17 gm HSPRN PRN ORAL Constipation 09/28/18 07:00 10/28/18 06:59 Propranolol HCl (Inderal) 10 mg BID ORAL 09/28/18 18:00 10/28/18 17:59 09/30/18 08:30 Quetiapine Fumarate (SEROquel) 300 mg 0900,1700,2100 ORAL 09/29/18 09:00 10/29/18 08:59 09/30/18 08:29 Thiamine HCl 100 mg/Dextrose 56 ml @ 112 mls/hr Q24H IVPB 09/28/18 09:00 10/28/18 08:59 09/30/18 09:18 Zolpidem Tartrate (Ambien) 5 mg HSPRN PRN ORAL Insomnia 09/28/18 07:00 10/05/18 06:59 Na López MD Sep 30, 2018 14:16
[2018-09-30] MEDS: chlordiazePOXIDE 25mg Cap ORAL PRN (15:14)
--- NOTE | 2018-09-30 15:14 | Infectious Diseases Prog Note ---
Assessment/Plan Assessment/Plan Abx: None Assessment: Mild leukocytosis- likely reactive- no evident infectious process- resolved Afebrile u/a neg Ethanol intoxication Aggressive behavior -UDS +marihuana -Ethanol 365 mg/dl HTN seizure disorder psychiatric disorder substance abuse NH resident Plan: -Continue to monitor off abx -f/u cx -Monitor CBC/CMP, temperatures -Psych eval Thank you for this consultation. Will continue to follow along with you. Discussed with RN. Subjective Allergies: Coded Allergies: ACETAMINOPHEN (Verified Allergy, Unknown, 09/27/18) HALOPERIDOL (Verified Allergy, Unknown, 09/27/18) Subjective afebrile off abx leukocytosis resolved Objective Vital Signs Last 24 Hour Vital Signs Date Time Temp Pulse Resp B/P (MAP) Pulse Ox O2 Delivery O2 Flow Rate FiO2 09/30/18 13:59 98.8 09/30/18 12:00 98.8 96 18 140/79 (99) 97 09/30/18 09:00 Room Air 09/30/18 08:30 69 123/80 09/30/18 08:00 98.4 69 18 123/80 (94) 98 09/29/18 21:58 Room Air 09/29/18 20:18 98.5 85 18 114/72 (86) 95 09/29/18 17:58 82 134/85 09/29/18 16:00 98.2 88 17 129/78 (95) 99 Height (Feet): 6 Height (Inches): 1.00 Weight (Pounds): 229 Objective General Appearance: well appearing, no apparent distress, other - Somnolent Head: normocephalic, atraumatic Eyes: bilateral eye PERRL, bilateral eye EOMI ENT: hearing grossly normal, normal pharynx Neck: full range of motion, supple, no meningismus Respiratory: chest non-tender, lungs clear, normal breath sounds Cardiovascular #1: regular rate, rhythm, no murmur Gastrointestinal: normal bowel sounds, non tender, no mass, no organomegaly, no bruit, non-distended Musculoskeletal: back normal, normal range of motion, other - Right forearm: There is a 4 cm laceration to the mid forearm. No foreign body. No tendon involvement. Left upper forearm: Small superficial skin abrasion. Psychiatric: mood/affect sandra Microbiology Date/Time Source Procedure Growth Status 09/28/18 03:00 Nasal Nares MRSA Culture - Final NO METHICILLIN RESISTANT STAPH AUREUS... Complete 09/28/18 03:00 Rectum - Final NO CARBAPENEM-RESISTANT ENTEROBACTERI... Complete 09/28/18 03:00 Rectum VRE Culture - Final NO VANCOMYCIN RESISTANT ENTEROCOCCUS ... Complete Current Medications Medications (Trade) Dose Ordered Sig/Ana Route PRN Reason Start Time Stop Time Status Last Admin Dose Admin Bupropion HCl (Wellbutrin XL) 450 mg DAILY ORAL 09/28/18 12:00 10/28/18 11:59 09/30/18 08:31 Buspirone HCl (Buspar) 30 mg BID@0800,1400 ORAL 09/29/18 15:15 10/29/18 15:14 09/30/18 13:19 Chlordiazepoxide (Librium) 25 mg Q6H PRN ORAL Agitation 09/28/18 06:50 10/05/18 06:49 Dextrose (Dextrose 50%) 25 ml Q30M PRN IV Hypoglycemia 09/28/18 07:00 10/28/18 06:59 Dextrose (Dextrose 50%) 50 ml Q30M PRN IV Hypoglycemia 09/28/18 07:00 10/28/18 06:59 Folic Acid 1 mg/ Magnesium Sulfate 2000 mg/ Multivitamins 10 ml/Potassium Chloride/Sodium Chloride 1,014.2 ml @ 124.876 mls/hr Q24H IV 09/28/18 09:00 10/28/18 08:59 09/30/18 14:25 Heparin Sodium (Porcine) (Heparin 5000 units/ml) 5,000 units EVERY 12 HOURS SUBQ 09/28/18 09:00 10/28/18 08:59 09/28/18 21:06 Lorazepam (Ativan 2mg/ml 1ml) 2 mg Q1H PRN IV seizures 09/28/18 07:00 10/05/18 06:59 Magnesium Hydroxide (Mom) 30 ml DAILYPRN PRN ORAL Constipation 09/28/18 11:00 10/28/18 10:59 Morphine Sulfate (Morphine Sulfate) 1 mg Q4H PRN IVP For Pain 09/28/18 07:00 10/05/18 06:59 09/30/18 13:29 Nicotine (Nicoderm) 1 patch DAILY TDERMAL 09/29/18 09:00 10/29/18 08:59 Ondansetron HCl (Zofran) 4 mg Q6H PRN IVP Nausea & Vomiting 09/28/18 07:00 10/28/18 06:59 Polyethylene Glycol (Miralax) 17 gm HSPRN PRN ORAL Constipation 09/28/18 07:00 10/28/18 06:59 Propranolol HCl (Inderal) 10 mg BID ORAL 09/28/18 18:00 10/28/18 17:59 09/30/18 08:30 Quetiapine Fumarate (SEROquel) 300 mg 0900,1700,2100 ORAL 09/29/18 09:00 10/29/18 08:59 09/30/18 08:29 Thiamine HCl 100 mg/Dextrose 56 ml @ 112 mls/hr Q24H IVPB 09/28/18 09:00 10/28/18 08:59 09/30/18 09:18 Zolpidem Tartrate (Ambien) 5 mg HSPRN PRN ORAL Insomnia 09/28/18 07:00 10/05/18 06:59 Dorys Duke M.D. Sep 30, 2018 15:14
--- NOTE | 2018-09-30 15:45 | Progress Note ---
DATE: 09/30/2018 SUBJECTIVE: The patient is a 33-year-old male with alcohol intoxication, but he also has bipolar II, extreme mood lability, irritability, and agitation, worsened by stress of his medical illness. MENTAL STATUS EXAMINATION: This is a 33-year-old male. Appearance is disheveled. Attitude, irritable and agitated. Affect, guarded and restricted. Intellect, poor. Mood, depressed and anxious. Motor activity, psychomotor agitation. Attention span is poor. Orientation x2. Speech is low volume, slurred. Thought process, disorganized and illogical. Insight and judgment is poor. DIAGNOSIS: Bipolar II. PLAN: Treat the patient with medication regimen consisting of Wellbutrin 300 mg nightly and BuSpar at a dose of 30 mg twice a day, every morning and every noon. Provide him with 20 minutes of cognitive behavioral therapy to help him identify his automatic negative thoughts and help convert those negative thoughts to more positive thoughts to reduce depression, anxiety, and mood lability. Chart reviewed. Discussed with staff. Seen and assessed at bedside. Andry Julien M.D. DR: BRENDAN JOB#: [id number] CC:
--- NOTE | 2018-09-30 15:55 | NUR ---
NURSE NOTES: [facility] accept pt back. pt has referral to [facility] which pt refused. pt prefers [facility] in [place]. informed Jen KHOURY) to fax inquiries to [facility]. pt made aware as well.
--- NOTE | 2018-09-30 15:59 | NUR ---
Social Service Note SW faxed referral to [facility] [phone] (p) [phone] (f). Addendum: 09/30/18 at 1643 by TERR[facility] B[facility] Sudarshan from [facility] declined patient, due to medicare days exhausted. Patient has not been out of the hospital setting long enough for days to regenerate. [facility] is not a [facility] provider. [place] [phone] no male beds per [facility]. Primary nurse notified.
[2018-09-30 16:00] VITALS: BP 127/81
--- NOTE | 2018-09-30 19:56 | NUR ---
NURSE NOTES: Patient in bed alert, awake. No s/s respiratory distress noted. IV in place. Bed in lowest position, locked, call light placed within reach. Will continue to monitor.
--- NOTE | 2018-09-30 19:57 | NUR ---
CASE MANAGEMENT: REVIEW SI: ETOH INTOXICATION T 98.8 HR 96 RR 18 BP 140/79 SAT 97% ROOM AIR IS: BANANA BAG IV Q24HR THIAMINE IV Q24HR INDERAL PO BID LIBRIUM PO PRN MED/SURG STATUS DCP: PATIENT FROM [facility] . SEEKING PLACEMENT
[2018-09-30 20:00] VITALS: BP 110/92
--- NOTE | 2018-09-30 20:09 | NUR ---
HAND-OFF: Report given to ALIRIO CONWAY.
--- NOTE | 2018-09-30 21:00 | NUR ---
NURSE NOTES: Patient wanted to be disconnected from the fluids at this time. RN explained the benefits, patient still refused.
--- NOTE | 2018-10-01 06:00 | Consultation ---
DATE OF CONSULTATION: 09/30/2018 NOTE: POOR AUDIO. PSYCHOTHERAPY CONSULTATION PROGRESS NOTE CONSULTING PHYSICIAN: Gissel Ireland PsyD. TREATING ATTENDING PHYSICIAN: Javier Medina D.O. HISTORY OF PRESENT ILLNESS: The patient is a 33-year-old male patient . The patient alcohol intoxication and agitation. the patient was nursing facility. He is aggressive record and he has intoxicated and for these reasons, he is in the hospital. He was altered in his mental status on arrival in the emergency room. Now, the patient he is confused, anxious, and agitated with poor insight into behaviors he has a history of bipolar disorder the patient states that he he can go back. He states "not a big deal." He continues to remain anxious, constantly asking for medications and also pain medications. No suicidal or homicidal thoughts of ideations. There is no indication for auditory or visual hallucinations. PAST MEDICAL HISTORY: He has a history of hypertension, COPD, and seizures. ALLERGIES: The patient is allergic to acetaminophen and . SUBSTANCE ABUSE HISTORY: The patient alcohol use and smoking cigarettes. PSYCHIATRIC HISTORY: The patient has a history of bipolar disorder and has been treated with psychotropic medications in the past. SOCIAL HISTORY: The patient is a 33-year-old male patient. [facility]. Financially sustained through [employer]. MENTAL STATUS EXAMINATION: The patient is alert and oriented to person, place, time, and situation. His mood is irritable. Affect is congruent. Thought process . Thought content is negative and catastrophic. The patient has poor attention and concentration. Poor insight, judgment, and impulse control. DIAGNOSIS: Bipolar I disorder, moderate without psychotic features. I ASSESSED THIS PATIENT. I PROVIDED THE PATIENT WITH: 1. Reality orientation, which is focused on improving the cognitive function of the patient, who is confused and disorganized. Oriented to place, person, time, and situation. 2. I provided the patient with supportive psychotherapy, which is focused on identifying positive emotions of stress . PLAN: Continue with in the hospital setting and impulsivity discussing impulse control strategies with the patient . Plan to maintain medication compliance with positive coping skills, and stabilizing the thoughts and behavior. Psychotherapy provided to this patient is 50 minutes. This clinician has reviewed the patient's chart and discussed treatment with treatment team. Gissel Ireland PsyD. DR: RUFUS JOB#: [id number] CC:
--- NOTE | 2018-10-01 06:11 | NUR ---
NURSE NOTES: Patient refused am labs. Nurse tried to explain, patient still refused. Senior Java Ui Developer will come again at a later time.
--- NOTE | 2018-10-01 07:09 | NUR ---
HAND-OFF: Report given to AMANDA GARRETT RN.
--- NOTE | 2018-10-01 07:10 | NUR ---
NURSE NOTES:BEDSIDE ROUNDS WITH NIGHT RN(ALIRIO)PT.ASLEEP ON HIS LEFT SIDE,ROOM AIR,NO SIGN OF DISTRESS.
[2018-10-01] MEDS: Heparin 5000 units/ml inj SUBQ SCH ×2 (09:00→19:59)
[2018-10-01] MEDS: Folic Acid 1 MG, Magnesium Sulfate 2,000 MG, Multivitamin - 12 Injection 10 ML in NS w/... IV SCH (09:00)
[2018-10-01] MEDS: BuPROPion XL 150mg tab ORAL SCH (09:09)
[2018-10-01] MEDS: BusPIRone 5mg Tab ORAL SCH ×2 (09:10→13:00)
[2018-10-01] MEDS: Propranolol 10mg tab ORAL SCH ×2 (09:14→17:07)
[2018-10-01] MEDS: Morphine Sulfate 2mg/ml Inj(IV/IM USE ONLY) IVP PRN ×4 (09:23→22:03)
[2018-10-01] MEDS: Thiamine 100mg in D5W 55ml IVPB SCH (09:31)
[2018-10-01 11:24] LABS: BASOPHILS % (AUTO) 1.1 % (0.0-2.0); EOSINOPHILS % (AUTO) 2.9 % (0.0-3.0); HEMATOCRIT 49.7 % (42.0-52.0); HEMOGLOBIN 16.4 G/DL (14.2-18.0); LYMPHOCYTES % (AUTO) 22.7 % (20.0-45.0); MEAN CORPUSCULAR VOLUME 94 FL (80-99); MONOCYTES % (AUTO) 5.6 % (1.0-10.0); NEUTROPHILS % (AUTO) 67.8 % (45.0-75.0); PLATELET COUNT 324 K/UL (150-450); RED BLOOD COUNT 5.26 M/UL (4.70-6.10); RED CELL DISTRIBUTION WIDTH 12.8 % (11.6-14.8); WHITE BLOOD COUNT 7.2 K/UL (4.8-10.8)
[2018-10-01 11:59] LABS: ANION GAP 11 mmol/L (5-15); BLOOD UREA NITROGEN 11 mg/dL (7-18); CARBON DIOXIDE 25 MMOL/L (21-32); CHLORIDE 101 MMOL/L (98-107); CREATININE 1.1 MG/DL (0.55-1.30); POTASSIUM 3.8 MMOL/L (3.5-5.1); SODIUM 137 MMOL/L (136-145)
[2018-10-01 12:00] VITALS: BP 120/61
--- NOTE | 2018-10-01 12:22 | General Progress Note ---
Assessment/Plan Problem List: (1) Psychosis ICD Codes: F29 - Unspecified psychosis not due to a substance or known physiological condition SNOMED: 04035209 (2) Alcohol intoxication ICD Codes: F10.929 - Alcohol use, unspecified with intoxication, unspecified SNOMED: 57305930 Qualifiers: Qualified Codes: F10.920 - Alcohol use, unspecified with intoxication, uncomplicated (3) Agitation ICD Codes: R45.1 - Restlessness and agitation SNOMED: 832889792 (4) Laceration of forearm, right ICD Codes: S51.811A - Laceration without foreign body of right forearm, initial encounter SNOMED: 88768172330594310 Qualifiers: Qualified Codes: S51.811A - Laceration without foreign body of right forearm , initial encounter Status: stable, progressing Assessment/Plan: wound care detox cbc bmp am psyc transfer Subjective Allergies: Coded Allergies: ACETAMINOPHEN (Verified Allergy, Unknown, 09/27/18) HALOPERIDOL (Verified Allergy, Unknown, 09/27/18) All Systems: reviewed and negative except above Subjective calm in bed Objective Last 24 Hour Vital Signs Date Time Temp Pulse Resp B/P (MAP) Pulse Ox O2 Delivery O2 Flow Rate FiO2 10/01/18 09:14 81 120/80 09/30/18 22:37 98.0 09/30/18 21:00 Room Air 09/30/18 20:00 97.8 79 18 110/92 (98) 98 09/30/18 17:44 73 127/81 09/30/18 16:00 98.0 73 14 127/81 (96) 98 Intake and Output 09/30/18 10/01/18 19:00 07:00 Intake Total 555.504 ml 1224.876 ml Output Total 0 ml Balance 555.504 ml 1224.876 ml Intake Oral 1100 ml IV Total 555.504 ml 124.876 ml Output Urine Total 0 ml # Voids 4 # Bowel Movements 1 1 Laboratory Tests 10/01/18 09:50: White Blood Count 7.2, Red Blood Count 5.26, Hemoglobin 16.4, Hematocrit 49.7, Mean Corpuscular Volume 94, Mean Corpuscular Hemoglobin 31.1H, Mean Corpuscular Hemoglobin Concent 32.9, Red Cell Distribution Width 12.8, Platelet Count 324, Mean Platelet Volume 6.0L, Neutrophils (%) (Auto) 67.8, Lymphocytes (%) (Auto) 22.7, Monocytes (%) (Auto) 5.6, Eosinophils (%) (Auto) 2.9, Basophils (%) (Auto ) 1.1, Sodium Level 137, Potassium Level 3.8, Chloride Level 101, Carbon Dioxide Level 25, Anion Gap 11, Blood Urea Nitrogen 11, Creatinine 1.1, Estimat Glomerular Filtration Rate > 60, Glucose Level 110H, Calcium Level 9.0 Height (Feet): 6 Height (Inches): 1.00 Weight (Pounds): 229 General Appearance: lethargic EENT: normal ENT inspection Neck: normal alignment Cardiovascular: normal peripheral pulses, normal rate, regular rhythm Respiratory/Chest: chest wall non-tender, lungs clear, normal breath sounds Abdomen: normal bowel sounds, non tender, soft Extremities: normal inspection Edema: no edema noted Arm (L), no edema noted Arm (R), no edema noted Leg (L), no edema noted Leg (R), no edema noted Pedal (L), no edema noted Pedal (R), no edema noted Generalized Neurologic: responsive, motor weakness Skin: normal pigmentation, warm/dry Javier Medina DO Oct 01, 2018 12:22
--- NOTE | 2018-10-01 13:00 | NUR ---
NURSE NOTES:PT. REFUSED TO BE HOOKED ON IV FLUID.
[2018-10-01 16:00] VITALS: BP 107/58
[2018-10-01] MEDS: chlordiazePOXIDE 25mg Cap ORAL PRN (17:07)
--- NOTE | 2018-10-01 17:10 | NUR ---
CASE MANGER REVIEW IS: ETOH INTOXICATION T 98.8 HR 96 RR 18 BP 140/79 SAT 97% ROOM AIR IS: MORPHINE SULFATE 1mg IVP THIAMINE IV Q24HR INDERAL 10mg LIBRIUM 25mg BANANA BAG 1,014.2 ml IV MED/SRUG STATUS
--- NOTE | 2018-10-01 18:45 | Progress Note ---
DATE: 10/01/2018 SUBJECTIVE: This is a 33-year-old male, came in for alcohol bipolar II, mood lability, racing thoughts. Mood lability has worsened secondary to stress of his medical illness. MENTAL STATUS EXAMINATION: This is a 33-year-old male. Appearance is disheveled. Attitude, irritable and agitated. Insight and judgment are poor. DIAGNOSIS: Bipolar II. PLAN: Continue , BuSpar 30 mg twice a day, Seroquel 300 mg nightly, and also Wellbutrin . Provided him with 20 minutes of cognitive behavioral therapy to help him identify his automatic negative thoughts and help convert those negative thoughts to more positive thoughts to reduce depression, anxiety, and mood lability. Chart was reviewed. Discussed with staff. Seen and assessed in his room. 20 minutes of cognitive behavioral therapy provided. Andry Julien M.D. DR: YELENA JOB#: [id number] CC:
--- NOTE | 2018-10-01 19:05 | NUR ---
HAND-OFF: Report given to philippe lemus.pt.stable..
--- NOTE | 2018-10-01 19:29 | NUR ---
NURSE NOTES: Patient in bed alert, awake, restless, anxious. Patient worried about his belongings at his detention and requesting for another dose of Buspar. Called and left message for Dr. Julien, awaiting response. No s/s respiratory distress noted. IV in place. Bed in lowest position, locked, call light placed within reach. Will continue to monitor.
--- NOTE | 2018-10-01 20:53 | Infectious Diseases Prog Note ---
Assessment/Plan Assessment/Plan Abx: None Assessment: Mild leukocytosis- likely reactive- no evident infectious process- resolved Afebrile u/a neg Ethanol intoxication Aggressive behavior -UDS +marihuana -Ethanol 365 mg/dl HTN seizure disorder psychiatric disorder substance abuse [facility] resident Plan: -Continue to monitor off abx -f/u cx -Monitor CBC/CMP, temperatures -Psych eval Thank you for this consultation. Will continue to follow along with you. Discussed with RN. Subjective Allergies: Coded Allergies: ACETAMINOPHEN (Verified Allergy, Unknown, 09/27/18) HALOPERIDOL (Verified Allergy, Unknown, 09/27/18) Subjective afebrile off abx no leukocytosis Objective Vital Signs Last 24 Hour Vital Signs Date Time Temp Pulse Resp B/P (MAP) Pulse Ox O2 Delivery O2 Flow Rate FiO2 10/01/18 17:07 81 107/58 10/01/18 16:00 98.0 81 19 107/58 (74) 97 10/01/18 12:00 97.1 18 120/61 (80) 98 10/01/18 09:14 81 120/80 10/01/18 09:00 Room Air 09/30/18 22:37 98.0 09/30/18 21:00 Room Air Height (Feet): 6 Height (Inches): 1.00 Weight (Pounds): 229 Objective General Appearance: well appearing, no apparent distress, other - Somnolent Head: normocephalic, atraumatic Eyes: bilateral eye PERRL, bilateral eye EOMI ENT: hearing grossly normal, normal pharynx Neck: full range of motion, supple, no meningismus Respiratory: chest non-tender, lungs clear, normal breath sounds Cardiovascular #1: regular rate, rhythm, no murmur Gastrointestinal: normal bowel sounds, non tender, no mass, no organomegaly, no bruit, non-distended Musculoskeletal: back normal, normal range of motion, other - Right forearm: There is a 4 cm laceration to the mid forearm. No foreign body. No tendon involvement. Left upper forearm: Small superficial skin abrasion. Psychiatric: mood/affect sandra Laboratory Tests Test 10/01/18 09:50 White Blood Count 7.2 K/UL (4.8-10.8) Red Blood Count 5.26 M/UL (4.70-6.10) Hemoglobin 16.4 G/DL (14.2-18.0) Hematocrit 49.7 % (42.0-52.0) Mean Corpuscular Volume 94 FL (80-99) Mean Corpuscular Hemoglobin 31.1 PG (27.0-31.0) H Mean Corpuscular Hemoglobin Concent 32.9 G/DL (32.0-36.0) Red Cell Distribution Width 12.8 % (11.6-14.8) Platelet Count 324 K/UL (150-450) Mean Platelet Volume 6.0 FL (6.5-10.1) L Neutrophils (%) (Auto) 67.8 % (45.0-75.0) Lymphocytes (%) (Auto) 22.7 % (20.0-45.0) Monocytes (%) (Auto) 5.6 % (1.0-10.0) Eosinophils (%) (Auto) 2.9 % (0.0-3.0) Basophils (%) (Auto) 1.1 % (0.0-2.0) Sodium Level 137 MMOL/L (136-145) Potassium Level 3.8 MMOL/L (3.5-5.1) Chloride Level 101 MMOL/L (98-107) Carbon Dioxide Level 25 MMOL/L (21-32) Anion Gap 11 mmol/L (5-15) Blood Urea Nitrogen 11 mg/dL (7-18) Creatinine 1.1 MG/DL (0.55-1.30) Estimat Glomerular Filtration Rate > 60 mL/min (>60) Glucose Level 110 MG/DL (74-106) H Calcium Level 9.0 MG/DL (8.5-10.1) Current Medications Medications (Trade) Dose Ordered Sig/Ana Route PRN Reason Start Time Stop Time Status Last Admin Dose Admin Bupropion HCl (Wellbutrin XL) 450 mg DAILY ORAL 09/28/18 12:00 10/28/18 11:59 10/01/18 09:09 Buspirone HCl (Buspar) 30 mg BID@0800,1400 ORAL 09/29/18 15:15 10/29/18 15:14 10/01/18 13:00 Chlordiazepoxide (Librium) 25 mg Q6H PRN ORAL Agitation 09/28/18 06:50 10/05/18 06:49 10/01/18 17:07 Dextrose (Dextrose 50%) 25 ml Q30M PRN IV Hypoglycemia 09/28/18 07:00 10/28/18 06:59 Dextrose (Dextrose 50%) 50 ml Q30M PRN IV Hypoglycemia 09/28/18 07:00 10/28/18 06:59 Folic Acid 1 mg/ Magnesium Sulfate 2000 mg/ Multivitamins 10 ml/Potassium Chloride/Sodium Chloride 1,014.2 ml @ 124.876 mls/hr Q24H IV 09/28/18 09:00 10/28/18 08:59 09/30/18 14:25 Heparin Sodium (Porcine) (Heparin 5000 units/ml) 5,000 units EVERY 12 HOURS SUBQ 09/28/18 09:00 10/28/18 08:59 09/28/18 21:06 Lorazepam (Ativan 2mg/ml 1ml) 2 mg Q1H PRN IV seizures 09/28/18 07:00 10/05/18 06:59 Magnesium Hydroxide (Mom) 30 ml DAILYPRN PRN ORAL Constipation 09/28/18 11:00 10/28/18 10:59 Morphine Sulfate (Morphine Sulfate) 1 mg Q4H PRN IVP For Pain 09/28/18 07:00 10/05/18 06:59 10/01/18 18:09 Nicotine (Nicoderm) 1 patch DAILY TDERMAL 09/29/18 09:00 10/29/18 08:59 Ondansetron HCl (Zofran) 4 mg Q6H PRN IVP Nausea & Vomiting 09/28/18 07:00 10/28/18 06:59 Polyethylene Glycol (Miralax) 17 gm HSPRN PRN ORAL Constipation 09/28/18 07:00 10/28/18 06:59 Propranolol HCl (Inderal) 10 mg BID ORAL 09/28/18 18:00 10/28/18 17:59 10/01/18 17:07 Quetiapine Fumarate (SEROquel) 300 mg 0900,1700,2100 ORAL 09/29/18 09:00 10/29/18 08:59 10/01/18 17:08 Thiamine HCl 100 mg/Dextrose 56 ml @ 112 mls/hr Q24H IVPB 09/28/18 09:00 10/28/18 08:59 10/01/18 09:31 Zolpidem Tartrate (Ambien) 5 mg HSPRN PRN ORAL Insomnia 09/28/18 07:00 10/05/18 06:59 Dorys Duke M.D. Oct 01, 2018 20:53
[2018-10-01 22:48] VITALS: BP 121/75
--- NOTE | 2018-10-02 02:48 | NUR ---
HAND-OFF: Report given to BEVERLEY STOUT RN. PATIENT IN STABLE CONDITION. ASLEEP.
--- NOTE | 2018-10-02 02:49 | NUR ---
NURSE NOTES: Received patient in no apparent distress. Patient is sleeping. IV site patent and intact. Bed in lowest position. Call light within reach. Will continue to monitor.
--- NOTE | 2018-10-02 06:16 | NUR ---
NURSE NOTES: Patient refused blood lab draw. Patient requested came back at 10am.
--- NOTE | 2018-10-02 07:40 | NUR ---
NURSE NOTES: Received patient in bed, asleep @ this time. Breathing is even and unlabored. Bed is in lowest position and locked. Call light within reach. Will continue plan of care.
--- NOTE | 2018-10-02 07:41 | NUR ---
HAND-OFF: Report given to Peggy Maldonado RN.
--- NOTE | 2018-10-02 08:00 | NUR ---
NURSE NOTES: Patient refused v/s and to take buspar @ this time. Patient does not want to be bothered. Will follow up.
[2018-10-02] MEDS: Propranolol 10mg tab ORAL SCH ×2 (09:00→17:51)
[2018-10-02] MEDS: Heparin 5000 units/ml inj SUBQ SCH ×2 (09:00→20:05)
--- NOTE | 2018-10-02 09:15 | General Progress Note ---
Assessment/Plan Problem List: (1) Psychosis ICD Codes: F29 - Unspecified psychosis not due to a substance or known physiological condition SNOMED: 56697847 (2) Alcohol intoxication ICD Codes: F10.929 - Alcohol use, unspecified with intoxication, unspecified SNOMED: 64799920 Qualifiers: Qualified Codes: F10.920 - Alcohol use, unspecified with intoxication, uncomplicated (3) Agitation ICD Codes: R45.1 - Restlessness and agitation SNOMED: 364924877 (4) Laceration of forearm, right ICD Codes: S51.811A - Laceration without foreign body of right forearm, initial encounter SNOMED: [id number] Qualifiers: Qualified Codes: S51.811A - Laceration without foreign body of right forearm , initial encounter Status: stable, progressing Assessment/Plan: wound care detox cbc bmp am psyc transfer Subjective Constitutional: Reports: weakness Allergies: Coded Allergies: ACETAMINOPHEN (Verified Allergy, Unknown, 09/27/18) HALOPERIDOL (Verified Allergy, Unknown, 09/27/18) All Systems: reviewed and negative except above Subjective calm in bed Objective Last 24 Hour Vital Signs Date Time Temp Pulse Resp B/P (MAP) Pulse Ox O2 Delivery O2 Flow Rate FiO2 10/02/18 09:00 Room Air 10/02/18 08:00 18 10/02/18 04:00 18 10/01/18 22:48 64 18 121/75 (90) 96 10/01/18 22:33 98.0 10/01/18 22:00 Room Air 10/01/18 17:07 81 107/58 10/01/18 16:00 98.0 81 19 107/58 (74) 97 10/01/18 12:00 97.1 18 120/61 (80) 98 Intake and Output 10/01/18 10/02/18 18:59 06:59 Intake Total 1455.504 ml Balance 1455.504 ml Intake Oral 900 ml IV Total 555.504 ml # Voids 5 3 Laboratory Tests 10/01/18 09:50: White Blood Count 7.2, Red Blood Count 5.26, Hemoglobin 16.4, Hematocrit 49.7, Mean Corpuscular Volume 94, Mean Corpuscular Hemoglobin 31.1H, Mean Corpuscular Hemoglobin Concent 32.9, Red Cell Distribution Width 12.8, Platelet Count 324, Mean Platelet Volume 6.0L, Neutrophils (%) (Auto) 67.8, Lymphocytes (%) (Auto) 22.7, Monocytes (%) (Auto) 5.6, Eosinophils (%) (Auto) 2.9, Basophils (%) (Auto ) 1.1, Sodium Level 137, Potassium Level 3.8, Chloride Level 101, Carbon Dioxide Level 25, Anion Gap 11, Blood Urea Nitrogen 11, Creatinine 1.1, Estimat Glomerular Filtration Rate > 60, Glucose Level 110H, Calcium Level 9.0 Height (Feet): 6 Height (Inches): 1.00 Weight (Pounds): 229 General Appearance: lethargic EENT: normal ENT inspection Neck: normal alignment Cardiovascular: normal peripheral pulses, normal rate, regular rhythm Respiratory/Chest: chest wall non-tender, lungs clear, normal breath sounds Abdomen: normal bowel sounds, non tender, soft Extremities: normal inspection Edema: no edema noted Arm (L), no edema noted Arm (R), no edema noted Leg (L), no edema noted Leg (R), no edema noted Pedal (L), no edema noted Pedal (R), no edema noted Generalized Neurologic: motor weakness Skin: normal pigmentation, warm/dry Javier Medina DO Oct 02, 2018 09:15
--- NOTE | 2018-10-02 09:30 | NUR ---
NURSE NOTES: Patient refused to take 9:00am scheduled medication and blood draw @ this time and stated that " I am not ready for that. I Will call you guys when I am ready." RN explained to the patient the importance of following plan of care.Will follow up.
[2018-10-02 10:00] VITALS: BP 116/71
[2018-10-02] MEDS: BusPIRone 5mg Tab ORAL SCH ×2 (10:19→13:35)
[2018-10-02] MEDS: BuPROPion XL 150mg tab ORAL SCH (10:19)
[2018-10-02] MEDS: Folic Acid 1 MG, Magnesium Sulfate 2,000 MG, Multivitamin - 12 Injection 10 ML in NS w/... IV SCH (10:20)
[2018-10-02] MEDS: Thiamine 100mg in D5W 55ml IVPB SCH (10:20)
[2018-10-02] MEDS: Morphine Sulfate 2mg/ml Inj(IV/IM USE ONLY) IVP PRN ×3 (10:26→18:36)
--- NOTE | 2018-10-02 10:38 | NUR ---
NURSE NOTES: patient took all his meds but no IV medications @ this time.He wants IV meds later.
[2018-10-02 12:00] VITALS: BP 134/80
[2018-10-02 12:20] LABS: BASOPHILS % (AUTO) 1.1 % (0.0-2.0); EOSINOPHILS % (AUTO) 2.8 % (0.0-3.0); HEMATOCRIT 54.3 % (42.0-52.0); HEMOGLOBIN 17.7 G/DL (14.2-18.0); LYMPHOCYTES % (AUTO) 27.7 % (20.0-45.0); MEAN CORPUSCULAR VOLUME 95 FL (80-99); MONOCYTES % (AUTO) 8.1 % (1.0-10.0); NEUTROPHILS % (AUTO) 60.3 % (45.0-75.0); PLATELET COUNT 357 K/UL (150-450); RED BLOOD COUNT 5.69 M/UL (4.70-6.10); RED CELL DISTRIBUTION WIDTH 12.9 % (11.6-14.8); WHITE BLOOD COUNT 7.4 K/UL (4.8-10.8)
[2018-10-02 12:22] LABS: ANION GAP 8 mmol/L (5-15); BLOOD UREA NITROGEN 16 mg/dL (7-18); CALCIUM 9.9 MG/DL (8.5-10.1); CARBON DIOXIDE 27 MMOL/L (21-32); CHLORIDE 101 MMOL/L (98-107); CREATININE 1.2 MG/DL (0.55-1.30); POTASSIUM 4.5 MMOL/L (3.5-5.1); SODIUM 136 MMOL/L (136-145)
--- NOTE | 2018-10-02 13:30 | NUR ---
NURSE NOTES: patient is walking hallway,patient states that he is anxious. RN offered librium but patient refused, patient wanted to take buspar. Given buspar. will continue to monitor.
--- NOTE | 2018-10-02 14:27 | NUR ---
NURSE NOTES: Patient asked for morphine for pain. Given morphine. VSS.
[2018-10-02] MEDS: chlordiazePOXIDE 25mg Cap ORAL PRN ×2 (14:57→21:00)
[2018-10-02 15:07] VITALS: BP 130/71
--- NOTE | 2018-10-02 15:07 | NUR ---
NURSE NOTES: patient is walking around and stated that " I have a anxiety and my pulse is going up." pulse is 126 and BP is 130/71, o2sat is 98-99% in room air. denies chest pain @ this time. will continue to monitor and Dr. López was paged. Awaiting for return call.
--- NOTE | 2018-10-02 15:08 | NUR ---
NURSE NOTES: instructed patient how to do vagal maneuvers. Will continue to monitor.
--- NOTE | 2018-10-02 15:15 | NUR ---
NURSE NOTES: Rechecked patient's pulse. Pulse is 98. Patient states that he feels much better now. Will continue to monitor.
--- NOTE | 2018-10-02 15:50 | NUR ---
NURSE NOTES: patient is asleep @ this time. Breathing is even and unlabored. will continue to monitor.
--- NOTE | 2018-10-02 16:29 | Progress Note ---
DATE: 10/02/2018 SUBJECTIVE: This is a 33-year-old male with bipolar 2. Still has racing thoughts, mood lability, highly anxious. Denies suicidal or homicidal thoughts. With extreme mood lability due to his withdrawal daily psychiatric consultation requested. DIAGNOSIS: Bipolar 2 secondary to alcohol withdrawal. PLAN: BuSpar 30 mg daily every morning, every afternoon, Wellbutrin XL 450 mg a day, and Seroquel 300 at bedtime. 20 minutes of cognitive behavioral therapy provided to help him identify his automatic negative thoughts, help him convert his negative thoughts to more positive thoughts to reduce depression, anxiety, and mood lability. 20 minutes of cognitive behavioral therapy provided. Chart reviewed. Discussed with staff. Seen and assessed in his room. Andry Julien M.D. DR: OLGA JOB#: [id number] CC:
--- NOTE | 2018-10-02 17:14 | NUR ---
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
[2018-10-02 17:53] VITALS: BP 118/71
--- NOTE | 2018-10-02 17:53 | NUR ---
NURSE NOTES: Patient's pulse rate is 89. BP118/71. Patient is calm @ this time.
--- NOTE | 2018-10-02 18:00 | NUR ---
NURSE NOTES: patient refused EKG @ this time. Denies chest pain or SOB. RN explained the risks and benefits.
--- NOTE | 2018-10-02 18:20 | NUR ---
NURSE NOTES: Patient approached to Rn and stated " I am having an anxiety attack. I need buspar. Call doctor for one time dose right now, please." Rn provided a safe and hazard free environment. Rn contacted Dr. Julien and explained about patient's behavior with new order to give buspar 30mg x1.
[2018-10-02] MEDS ORDERED: BusPIRone 5mg Tab ORAL SCH (18:30)
--- NOTE | 2018-10-02 18:49 | NUR ---
NURSE NOTES: Given morphine for pain and buspar as ordered.
--- NOTE | 2018-10-02 19:00 | NUR ---
NURSE NOTES: Informed Dr. Garduno that patient Addendum: 10/02/18 at 1927 by GISELA ARNETT RN wrong entry
--- NOTE | 2018-10-02 19:27 | NUR ---
HAND-OFF: Report given to Bria.
[2018-10-02 20:00] VITALS: BP 122/65
--- NOTE | 2018-10-02 20:00 | NUR ---
NURSE NOTES: Patient received ambulating around the hallway, appears anxious. Needs attended and escorted back to room, educated on fall risk and safety. Verbalized understanding. IV is intact. Will continue to monitor.
--- NOTE | 2018-10-03 07:10 | NUR ---
NURSE NOTES: Handoff received from MAN Larson. Patient sleeping with no physical signs of discomfort. Bed is in the low and locked position and IV site is clean dry and intact.
--- NOTE | 2018-10-03 07:38 | NUR ---
HAND-OFF: Report given to Forest CONWAY.
[2018-10-03 08:00] VITALS: BP 131/82
[2018-10-03] MEDS: Heparin 5000 units/ml inj SUBQ SCH ×2 (09:00→21:00)
[2018-10-03] MEDS: Folic Acid 1 MG, Magnesium Sulfate 2,000 MG, Multivitamin - 12 Injection 10 ML in NS w/... IV SCH (09:00)
[2018-10-03] MEDS: BusPIRone 5mg Tab ORAL SCH ×3 (09:12→17:57)
[2018-10-03] MEDS: BuPROPion XL 150mg tab ORAL SCH (09:12)
[2018-10-03] MEDS: Propranolol 10mg tab ORAL SCH ×2 (09:13→17:56)
[2018-10-03] MEDS: Morphine Sulfate 2mg/ml Inj(IV/IM USE ONLY) IVP PRN ×4 (09:18→22:54)
--- NOTE | 2018-10-03 09:25 | General Progress Note ---
Assessment/Plan Problem List: (1) Psychosis ICD Codes: F29 - Unspecified psychosis not due to a substance or known physiological condition SNOMED: 37166594 (2) Alcohol intoxication ICD Codes: F10.929 - Alcohol use, unspecified with intoxication, unspecified SNOMED: 27176017 Qualifiers: Qualified Codes: F10.920 - Alcohol use, unspecified with intoxication, uncomplicated (3) Agitation ICD Codes: R45.1 - Restlessness and agitation SNOMED: 513131267 (4) Laceration of forearm, right ICD Codes: S51.811A - Laceration without foreign body of right forearm, initial encounter SNOMED: [id number] Qualifiers: Qualified Codes: S51.811A - Laceration without foreign body of right forearm , initial encounter Status: stable, progressing Assessment/Plan: wound care detox cbc bmp am psyc transfer Subjective Constitutional: Reports: weakness Allergies: Coded Allergies: ACETAMINOPHEN (Verified Allergy, Unknown, 09/27/18) HALOPERIDOL (Verified Allergy, Unknown, 09/27/18) All Systems: reviewed and negative except above Subjective sl anxious in room Objective Last 24 Hour Vital Signs Date Time Temp Pulse Resp B/P (MAP) Pulse Ox O2 Delivery O2 Flow Rate FiO2 10/03/18 09:13 101 131/82 10/02/18 21:00 Room Air 10/02/18 20:00 97.5 103 18 122/65 (84) 98 10/02/18 17:53 97.8 89 18 118/71 (87) 98 10/02/18 17:51 89 118/81 10/02/18 15:15 98 10/02/18 15:07 97.9 126 22 130/71 (90) 98 10/02/18 12:00 97.2 107 22 134/80 (98) 98 10/02/18 10:00 97.7 82 18 116/71 (86) 98 Intake and Output 10/02/18 10/03/18 19:00 07:00 Intake Total 900 ml 400 ml Balance 900 ml 400 ml Intake Oral 900 ml 400 ml # Voids 5 3 Laboratory Tests 10/02/18 12:00: White Blood Count 7.4, Red Blood Count 5.69, Hemoglobin 17.7, Hematocrit 54.3H, Mean Corpuscular Volume 95, Mean Corpuscular Hemoglobin 31.2H, Mean Corpuscular Hemoglobin Concent 32.6, Red Cell Distribution Width 12.9, Platelet Count 357, Mean Platelet Volume 6.2L, Neutrophils (%) (Auto) 60.3, Lymphocytes (%) (Auto) 27.7, Monocytes (%) (Auto) 8.1, Eosinophils (%) (Auto) 2.8, Basophils (%) (Auto ) 1.1, Sodium Level 136, Potassium Level 4.5, Chloride Level 101, Carbon Dioxide Level 27, Anion Gap 8, Blood Urea Nitrogen 16, Creatinine 1.2, Estimat Glomerular Filtration Rate > 60, Glucose Level 98, Calcium Level 9.9 Height (Feet): 6 Height (Inches): 1.00 Weight (Pounds): 229 General Appearance: lethargic EENT: normal ENT inspection Neck: non-tender Cardiovascular: normal peripheral pulses, normal rate, regular rhythm Respiratory/Chest: chest wall non-tender, lungs clear, normal breath sounds Abdomen: normal bowel sounds, non tender, soft Extremities: normal inspection Edema: no edema noted Arm (L), no edema noted Arm (R), no edema noted Leg (L), no edema noted Leg (R), no edema noted Pedal (L), no edema noted Pedal (R), no edema noted Generalized Neurologic: responsive Skin: normal pigmentation, warm/dry Javier Medina DO Oct 03, 2018 09:25
[2018-10-03 09:50] LABS: BASOPHILS % (AUTO) 1.1 % (0.0-2.0); EOSINOPHILS % (AUTO) 3.2 % (0.0-3.0); HEMATOCRIT 53.4 % (42.0-52.0); HEMOGLOBIN 17.3 G/DL (14.2-18.0); LYMPHOCYTES % (AUTO) 25.1 % (20.0-45.0); MEAN CORPUSCULAR VOLUME 94 FL (80-99); MONOCYTES % (AUTO) 7.8 % (1.0-10.0); NEUTROPHILS % (AUTO) 62.8 % (45.0-75.0); PLATELET COUNT 320 K/UL (150-450); RED BLOOD COUNT 5.66 M/UL (4.70-6.10); RED CELL DISTRIBUTION WIDTH 13.1 % (11.6-14.8); WHITE BLOOD COUNT 7.9 K/UL (4.8-10.8)
[2018-10-03 10:09] LABS: ANION GAP 6 mmol/L (5-15); BLOOD UREA NITROGEN 12 mg/dL (7-18); CALCIUM 9.8 MG/DL (8.5-10.1); CARBON DIOXIDE 30 MMOL/L (21-32); CHLORIDE 103 MMOL/L (98-107); CREATININE 1.1 MG/DL (0.55-1.30); POTASSIUM 4.3 MMOL/L (3.5-5.1); SODIUM 139 MMOL/L (136-145)
--- NOTE | 2018-10-03 10:17 | Infectious Diseases Prog Note ---
Assessment/Plan Assessment/Plan Abx: None Assessment: Mild leukocytosis- likely reactive- no evident infectious process- resolved Afebrile u/a neg Ethanol intoxication Aggressive behavior -UDS +marihuana -Ethanol 365 mg/dl HTN seizure disorder psychiatric disorder substance abuse NH resident Plan: -Continue to monitor off abx -f/u cx -Monitor CBC/CMP, temperatures -Psych f/u Thank you for this consultation. Will continue to follow along with you. Discussed with RN. Subjective Allergies: Coded Allergies: ACETAMINOPHEN (Verified Allergy, Unknown, 09/27/18) HALOPERIDOL (Verified Allergy, Unknown, 09/27/18) Subjective afebrile off abx no leukocytosis Objective Vital Signs Last 24 Hour Vital Signs Date Time Temp Pulse Resp B/P (MAP) Pulse Ox O2 Delivery O2 Flow Rate FiO2 10/03/18 09:13 101 131/82 10/02/18 21:00 Room Air 10/02/18 20:00 97.5 103 18 122/65 (84) 98 10/02/18 17:53 97.8 89 18 118/71 (87) 98 10/02/18 17:51 89 118/81 10/02/18 15:15 98 10/02/18 15:07 97.9 126 22 130/71 (90) 98 10/02/18 12:00 97.2 107 22 134/80 (98) 98 Height (Feet): 6 Height (Inches): 1.00 Weight (Pounds): 229 Objective General Appearance: well appearing, no apparent distress, other - Somnolent Head: normocephalic, atraumatic Eyes: bilateral eye PERRL, bilateral eye EOMI ENT: hearing grossly normal, normal pharynx Neck: full range of motion, supple, no meningismus Respiratory: chest non-tender, lungs clear, normal breath sounds Cardiovascular #1: regular rate, rhythm, no murmur Gastrointestinal: normal bowel sounds, non tender, no mass, no organomegaly, no bruit, non-distended Musculoskeletal: back normal, normal range of motion, other - Right forearm: There is a 4 cm laceration to the mid forearm. No foreign body. No tendon involvement. Left upper forearm: Small superficial skin abrasion. Psychiatric: mood/affect sandra Laboratory Tests Test 10/02/18 12:00 10/03/18 09:35 White Blood Count 7.4 K/UL (4.8-10.8) 7.9 K/UL (4.8-10.8) Red Blood Count 5.69 M/UL (4.70-6.10) 5.66 M/UL (4.70-6.10) Hemoglobin 17.7 G/DL (14.2-18.0) 17.3 G/DL (14.2-18.0) Hematocrit 54.3 % (42.0-52.0) H 53.4 % (42.0-52.0) H Mean Corpuscular Volume 95 FL (80-99) 94 FL (80-99) Mean Corpuscular Hemoglobin 31.2 PG (27.0-31.0) H 30.6 PG (27.0-31.0) Mean Corpuscular Hemoglobin Concent 32.6 G/DL (32.0-36.0) 32.4 G/DL (32.0-36.0) Red Cell Distribution Width 12.9 % (11.6-14.8) 13.1 % (11.6-14.8) Platelet Count 357 K/UL (150-450) 320 K/UL (150-450) Mean Platelet Volume 6.2 FL (6.5-10.1) L 6.2 FL (6.5-10.1) L Neutrophils (%) (Auto) 60.3 % (45.0-75.0) 62.8 % (45.0-75.0) Lymphocytes (%) (Auto) 27.7 % (20.0-45.0) 25.1 % (20.0-45.0) Monocytes (%) (Auto) 8.1 % (1.0-10.0) 7.8 % (1.0-10.0) Eosinophils (%) (Auto) 2.8 % (0.0-3.0) 3.2 % (0.0-3.0) H Basophils (%) (Auto) 1.1 % (0.0-2.0) 1.1 % (0.0-2.0) Sodium Level 136 MMOL/L (136-145) 139 MMOL/L (136-145) Potassium Level 4.5 MMOL/L (3.5-5.1) 4.3 MMOL/L (3.5-5.1) Chloride Level 101 MMOL/L (98-107) 103 MMOL/L (98-107) Carbon Dioxide Level 27 MMOL/L (21-32) 30 MMOL/L (21-32) Anion Gap 8 mmol/L (5-15) 6 mmol/L (5-15) Blood Urea Nitrogen 16 mg/dL (7-18) 12 mg/dL (7-18) Creatinine 1.2 MG/DL (0.55-1.30) 1.1 MG/DL (0.55-1.30) Estimat Glomerular Filtration Rate > 60 mL/min (>60) > 60 mL/min (>60) Glucose Level 98 MG/DL (74-106) 82 MG/DL (74-106) Calcium Level 9.9 MG/DL (8.5-10.1) 9.8 MG/DL (8.5-10.1) Current Medications Medications (Trade) Dose Ordered Sig/Ana Route PRN Reason Start Time Stop Time Status Last Admin Dose Admin Bupropion HCl (Wellbutrin XL) 450 mg DAILY ORAL 09/28/18 12:00 10/28/18 11:59 10/03/18 09:12 Buspirone HCl (Buspar) 30 mg BID@0800,1400 ORAL 09/29/18 15:15 10/29/18 15:14 10/03/18 09:12 Chlordiazepoxide (Librium) 25 mg Q6H PRN ORAL Agitation 09/28/18 06:50 10/05/18 06:49 10/02/18 21:00 Dextrose (Dextrose 50%) 25 ml Q30M PRN IV Hypoglycemia 09/28/18 07:00 10/28/18 06:59 Dextrose (Dextrose 50%) 50 ml Q30M PRN IV Hypoglycemia 09/28/18 07:00 10/28/18 06:59 Folic Acid 1 mg/ Magnesium Sulfate 2000 mg/ Multivitamins 10 ml/Potassium Chloride/Sodium Chloride 1,014.2 ml @ 124.876 mls/hr Q24H IV 09/28/18 09:00 10/28/18 08:59 10/02/18 10:20 Heparin Sodium (Porcine) (Heparin 5000 units/ml) 5,000 units EVERY 12 HOURS SUBQ 09/28/18 09:00 10/28/18 08:59 09/28/18 21:06 Lorazepam (Ativan 2mg/ml 1ml) 2 mg Q1H PRN IV seizures 09/28/18 07:00 10/05/18 06:59 Magnesium Hydroxide (Mom) 30 ml DAILYPRN PRN ORAL Constipation 09/28/18 11:00 10/28/18 10:59 Morphine Sulfate (Morphine Sulfate) 1 mg Q4H PRN IVP For Pain 09/28/18 07:00 10/05/18 06:59 10/03/18 09:18 Nicotine (Nicoderm) 1 patch DAILY TDERMAL 09/29/18 09:00 10/29/18 08:59 Ondansetron HCl (Zofran) 4 mg Q6H PRN IVP Nausea & Vomiting 09/28/18 07:00 10/28/18 06:59 Polyethylene Glycol (Miralax) 17 gm HSPRN PRN ORAL Constipation 09/28/18 07:00 10/28/18 06:59 Propranolol HCl (Inderal) 10 mg BID ORAL 09/28/18 18:00 10/28/18 17:59 10/03/18 09:13 Quetiapine Fumarate (SEROquel) 300 mg 0900,1700,2100 ORAL 09/29/18 09:00 10/29/18 08:59 10/03/18 09:12 Thiamine HCl 100 mg/Dextrose 56 ml @ 112 mls/hr Q24H IVPB 09/28/18 09:00 10/28/18 08:59 10/02/18 10:20 Zolpidem Tartrate (Ambien) 5 mg HSPRN PRN ORAL Insomnia 09/28/18 07:00 10/05/18 06:59 Dorys Duke M.D. Oct 03, 2018 10:17
[2018-10-03] MEDS: Thiamine 100mg in D5W 55ml IVPB SCH (10:21)
[2018-10-03] MEDS: chlordiazePOXIDE 25mg Cap ORAL PRN (11:15)
--- NOTE | 2018-10-03 14:59 | NUR ---
Social Service Note SW contacted the following facilities for psych placement: [facility] [phone] [facility] [phone] (P) [phone] (F) pending review [facility] [phone] no male beds Barriers to placement medi-nell and requires PET eval.
--- NOTE | 2018-10-03 15:14 | Pulmonology Progress Note ---
Assessment/Plan Problems: (1) Agitation (2) Alcohol intoxication (3) Laceration of forearm, right (4) Psychosis (5) ETOH abuse Assessment/Plan doing better librium resume psych meds dc to intermediate Subjective ROS Limited/Unobtainable: No Constitutional: Reports: no symptoms HEENT: Repors: no symptoms Allergies: Coded Allergies: ACETAMINOPHEN (Verified Allergy, Unknown, 09/27/18) HALOPERIDOL (Verified Allergy, Unknown, 09/27/18) Objective Last 24 Hour Vital Signs Date Time Temp Pulse Resp B/P (MAP) Pulse Ox O2 Delivery O2 Flow Rate FiO2 10/03/18 09:13 101 131/82 10/03/18 09:00 Room Air 10/03/18 08:00 97.6 14 131/82 (98) 10/02/18 21:00 Room Air 10/02/18 20:00 97.5 103 18 122/65 (84) 98 10/02/18 17:53 97.8 89 18 118/71 (87) 98 10/02/18 17:51 89 118/81 10/02/18 15:15 98 Intake and Output 10/02/18 10/03/18 19:00 07:00 Intake Total 900 ml 400 ml Balance 900 ml 400 ml Intake Oral 900 ml 400 ml # Voids 5 3 Objective General Appearance: WD/WN HEENT: normocephalic, atraumatic Respiratory/Chest: chest wall non-tender, lungs clear, normal breath sounds Breasts: no masses Cardiovascular: normal peripheral pulses, normal rate Abdomen: normal bowel sounds, soft, non tender Genitourinary: normal external genitalia Extremities: no cyanosis Neurologic/Psychiatric: 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 tumbling and rolling II-XII grossly normal Laboratory Tests 10/03/18 09:35: White Blood Count 7.9, Red Blood Count 5.66, Hemoglobin 17.3, Hematocrit 53.4H, Mean Corpuscular Volume 94, Mean Corpuscular Hemoglobin 30.6, Mean Corpuscular Hemoglobin Concent 32.4, Red Cell Distribution Width 13.1, Platelet Count 320, Mean Platelet Volume 6.2L, Neutrophils (%) (Auto) 62.8, Lymphocytes (%) (Auto) 25.1, Monocytes (%) (Auto) 7.8, Eosinophils (%) (Auto) 3.2H, Basophils (%) (Auto ) 1.1, Sodium Level 139, Potassium Level 4.3, Chloride Level 103, Carbon Dioxide Level 30, Anion Gap 6, Blood Urea Nitrogen 12, Creatinine 1.1, Estimat Glomerular Filtration Rate > 60, Glucose Level 82, Calcium Level 9.8 Current Medications Medications (Trade) Dose Ordered Sig/Ana Route PRN Reason Start Time Stop Time Status Last Admin Dose Admin Bupropion HCl (Wellbutrin XL) 450 mg DAILY ORAL 09/28/18 12:00 10/28/18 11:59 10/03/18 09:12 Buspirone HCl (Buspar) 30 mg BID@0800,1400 ORAL 09/29/18 15:15 10/29/18 15:14 10/03/18 13:11 Chlordiazepoxide (Librium) 25 mg Q6H PRN ORAL Agitation 09/28/18 06:50 10/05/18 06:49 10/03/18 11:15 Dextrose (Dextrose 50%) 25 ml Q30M PRN IV Hypoglycemia 09/28/18 07:00 10/28/18 06:59 Dextrose (Dextrose 50%) 50 ml Q30M PRN IV Hypoglycemia 09/28/18 07:00 10/28/18 06:59 Folic Acid 1 mg/ Magnesium Sulfate 2000 mg/ Multivitamins 10 ml/Potassium Chloride/Sodium Chloride 1,014.2 ml @ 124.876 mls/hr Q24H IV 09/28/18 09:00 10/28/18 08:59 10/02/18 10:20 Heparin Sodium (Porcine) (Heparin 5000 units/ml) 5,000 units EVERY 12 HOURS SUBQ 09/28/18 09:00 10/28/18 08:59 09/28/18 21:06 Lorazepam (Ativan 2mg/ml 1ml) 2 mg Q1H PRN IV seizures 09/28/18 07:00 10/05/18 06:59 Magnesium Hydroxide (Mom) 30 ml DAILYPRN PRN ORAL Constipation 09/28/18 11:00 10/28/18 10:59 Morphine Sulfate (Morphine Sulfate) 1 mg Q4H PRN IVP For Pain 09/28/18 07:00 10/05/18 06:59 10/03/18 14:52 Nicotine (Nicoderm) 1 patch DAILY TDERMAL 09/29/18 09:00 8/17/19 08:59 Ondansetron HCl (Zofran) 4 mg Q6H PRN IVP Nausea & Vomiting 09/28/18 07:00 10/28/18 06:59 Polyethylene Glycol (Miralax) 17 gm HSPRN PRN ORAL Constipation 09/28/18 07:00 10/28/18 06:59 Propranolol HCl (Inderal) 10 mg BID ORAL 09/28/18 18:00 10/28/18 17:59 10/03/18 09:13 Quetiapine Fumarate (SEROquel) 300 mg 0900,1700,2100 ORAL 09/29/18 09:00 10/29/18 08:59 10/03/18 09:12 Thiamine HCl 100 mg/Dextrose 56 ml @ 112 mls/hr Q24H IVPB 09/28/18 09:00 10/28/18 08:59 10/02/18 10:20 Zolpidem Tartrate (Ambien) 5 mg HSPRN PRN ORAL Insomnia 09/28/18 07:00 10/05/18 06:59 Na López MD Oct 03, 2018 15:14
--- NOTE | 2018-10-03 17:05 | NUR ---
*-* INSURANCE *-* ALL CLINICALS HAVE BEEN FAXED TO: [facility] PLEASE FAX THE REVIEW/CLINICAL NO ANODE REBUILDER ASSIGNED AT THIS TIME P- [phone] F- [phone]...REVIEW/CLINICAL
--- NOTE | 2018-10-03 17:17 | NUR ---
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
--- NOTE | 2018-10-03 18:15 | Progress Note ---
DATE: 10/03/2018 SUBJECTIVE: The patient is a 33-year-old male, still extremely mood labile irritable on the unit and easily agitated. That is why, daily psychiatric consultation requested. MENTAL STATUS EXAMINATION: This is a 33-year-old male. Appearance is disheveled. Attitude, irritable and agitated. Affect, guarded and restricted. Intellect, poor. Mood, depressed and anxious. Motor activity, psychomotor agitation. Attention span is poor. Orientation x2. Speech pressured. Thought process, disorganized and illogical. Insight and judgment is poor. DIAGNOSIS: Bipolar 2. PLAN: Treat him with medication regimen of Wellbutrin XL 450 mg daily, Seroquel mg at bedtime, BuSpar 30 mg twice a day. A 20 minutes of cognitive behavioral therapy to help him have a more adaptive behavioral pattern to reduce anxiety and mood lability. Chart reviewed. Discussed with staff. Seen and assessed in his room. Transfer to psych if possible once he is medically cleared. Andry Julien M.D. DR: YELENA JOB#: [id number] CC:
--- NOTE | 2018-10-03 19:45 | NUR ---
NURSE NOTES: Received report from MAN Garg. Patient A&Ox4, on room air. No signs of distress or labored breathing. IV intact, patent, and saline locked. Patient refusing IV fluids ordered by MD. Bed in lowest position with call light in reach. Will continue with plan of care.
[2018-10-03 20:00] VITALS: BP 117/78
--- NOTE | 2018-10-03 20:00 | NUR ---
HAND-OFF: Report given to Padmini CONWAY.
[2018-10-04] VITALS: BP 122/81
[2018-10-04] MEDS: chlordiazePOXIDE 25mg Cap ORAL PRN (01:23)
[2018-10-04] MEDS: Zolpidem 5mg tab ORAL PRN ×2 (01:23→02:16)
[2018-10-04] MEDS: Morphine Sulfate 2mg/ml Inj(IV/IM USE ONLY) IVP PRN ×4 (03:10→19:01)
[2018-10-04 04:00] VITALS: BP 97/47
--- NOTE | 2018-10-04 07:20 | NUR ---
HAND-OFF: Report given to MAN Garg.
--- NOTE | 2018-10-04 07:23 | NUR ---
NURSE NOTES: HANDOFF RECEIVED FROM MAN ALLEN
[2018-10-04 08:00] VITALS: BP 111/59
[2018-10-04] MEDS: Heparin 5000 units/ml inj SUBQ SCH ×2 (09:00→21:00)
[2018-10-04] MEDS: Thiamine 100mg in D5W 55ml IVPB SCH (09:00)
[2018-10-04] MEDS: Folic Acid 1 MG, Magnesium Sulfate 2,000 MG, Multivitamin - 12 Injection 10 ML in NS w/... IV SCH (09:00)
[2018-10-04] MEDS: BuPROPion XL 150mg tab ORAL SCH (10:10)
[2018-10-04] MEDS: BusPIRone 5mg Tab ORAL SCH ×3 (10:10→18:29)
[2018-10-04] MEDS: Propranolol 10mg tab ORAL SCH ×2 (10:11→17:47)
--- NOTE | 2018-10-04 10:46 | NUR ---
DISCHARGE PLANNING FAXED REFERAL TO [facility] FOR ADMISSIONS TO THE BOARD AND CARE SECTION OF FACILITY AWAITING AN ANSWER.
[2018-10-04 12:00] VITALS: BP 104/69
--- NOTE | 2018-10-04 12:55 | Pulmonology Progress Note ---
Assessment/Plan Problems: (1) Agitation (2) Alcohol intoxication (3) Laceration of forearm, right (4) Psychosis (5) ETOH abuse Assessment/Plan doing better librium resume psych meds dc to halfway Subjective ROS Limited/Unobtainable: No Constitutional: Reports: no symptoms HEENT: Repors: no symptoms Respiratory: Reports: no symptoms Allergies: Coded Allergies: ACETAMINOPHEN (Verified Allergy, Unknown, 09/27/18) HALOPERIDOL (Verified Allergy, Unknown, 09/27/18) Objective Last 24 Hour Vital Signs Date Time Temp Pulse Resp B/P (MAP) Pulse Ox O2 Delivery O2 Flow Rate FiO2 10/04/18 12:00 97.2 87 18 104/69 (81) 98 10/04/18 10:56 97.7 10/04/18 10:11 106 111/94 10/04/18 09:00 Room Air 10/04/18 08:00 97.7 106 18 111/59 (76) 97 10/04/18 04:00 98.5 103 19 97/47 (64) 97 10/04/18 00:00 98.4 100 19 122/81 (95) 97 10/03/18 21:00 Room Air 10/03/18 20:00 97.6 100 17 117/78 (91) 96 10/03/18 17:56 101 131/82 Intake and Output 10/03/18 10/04/18 19:00 07:00 Intake Total 500 ml Balance 500 ml Intake Oral 500 ml # Voids 3 6 Objective General Appearance: WD/WN HEENT: normocephalic, atraumatic Respiratory/Chest: chest wall non-tender, lungs clear, normal breath sounds Breasts: no masses Cardiovascular: normal peripheral pulses, normal rate Abdomen: normal bowel sounds, soft, non tender Genitourinary: normal external genitalia Extremities: no cyanosis 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 II-XII grossly normal Current Medications Medications (Trade) Dose Ordered Sig/Ana Route PRN Reason Start Time Stop Time Status Last Admin Dose Admin Bupropion HCl (Wellbutrin XL) 450 mg DAILY ORAL 09/28/18 12:00 10/28/18 11:59 10/04/18 10:10 Buspirone HCl (Buspar) 30 mg THREE TIMES A DAY ORAL 10/03/18 18:00 11/02/18 17:59 10/04/18 10:10 Chlordiazepoxide (Librium) 25 mg Q6H PRN ORAL Agitation 09/28/18 06:50 10/05/18 06:49 10/04/18 01:23 Dextrose (Dextrose 50%) 25 ml Q30M PRN IV Hypoglycemia 09/28/18 07:00 10/28/18 06:59 Dextrose (Dextrose 50%) 50 ml Q30M PRN IV Hypoglycemia 09/28/18 07:00 10/28/18 06:59 Folic Acid 1 mg/ Magnesium Sulfate 2000 mg/ Multivitamins 10 ml/Potassium Chloride/Sodium Chloride 1,014.2 ml @ 124.876 mls/hr Q24H IV 09/28/18 09:00 10/28/18 08:59 10/02/18 10:20 Heparin Sodium (Porcine) (Heparin 5000 units/ml) 5,000 units EVERY 12 HOURS SUBQ 09/28/18 09:00 10/28/18 08:59 09/28/18 21:06 Lorazepam (Ativan 2mg/ml 1ml) 2 mg Q1H PRN IV seizures 09/28/18 07:00 10/05/18 06:59 Magnesium Hydroxide (Mom) 30 ml DAILYPRN PRN ORAL Constipation 09/28/18 11:00 10/28/18 10:59 Morphine Sulfate (Morphine Sulfate) 1 mg Q4H PRN IVP For Pain 09/28/18 07:00 10/05/18 06:59 10/04/18 10:26 Nicotine (Nicoderm) 1 patch DAILY TDERMAL 09/29/18 09:00 10/29/18 08:59 Ondansetron HCl (Zofran) 4 mg Q6H PRN IVP Nausea & Vomiting 09/28/18 07:00 10/28/18 06:59 Polyethylene Glycol (Miralax) 17 gm HSPRN PRN ORAL Constipation 09/28/18 07:00 10/28/18 06:59 Propranolol HCl (Inderal) 10 mg BID ORAL 09/28/18 18:00 10/28/18 17:59 10/04/18 10:11 Quetiapine Fumarate (SEROquel) 300 mg 0900,1700,2100 ORAL 09/29/18 09:00 10/29/18 08:59 10/04/18 10:10 Thiamine HCl 100 mg/Dextrose 56 ml @ 112 mls/hr Q24H IVPB 09/28/18 09:00 10/28/18 08:59 10/02/18 10:20 Zolpidem Tartrate (Ambien) 5 mg HSPRN PRN ORAL Insomnia 09/28/18 07:00 10/05/18 06:59 10/04/18 02:16 Na López MD Oct 04, 2018 12:55
--- NOTE | 2018-10-04 13:30 | Infectious Diseases Prog Note ---
Assessment/Plan Assessment/Plan Abx: None Assessment: Mild leukocytosis- likely reactive- no evident infectious process- resolved Afebrile u/a neg Ethanol intoxication Aggressive behavior -UDS +marihuana -Ethanol 365 mg/dl HTN seizure disorder psychiatric disorder substance abuse NH resident Plan: -Continue to monitor off abx -f/u cx -Monitor CBC/CMP, temperatures -Psych f/u Thank you for this consultation. Will continue to follow along with you. Discussed with RN. Subjective Allergies: Coded Allergies: ACETAMINOPHEN (Verified Allergy, Unknown, 09/27/18) HALOPERIDOL (Verified Allergy, Unknown, 09/27/18) Subjective afebrile off abx no leukocytosis Objective Vital Signs Last 24 Hour Vital Signs Date Time Temp Pulse Resp B/P (MAP) Pulse Ox O2 Delivery O2 Flow Rate FiO2 10/04/18 12:00 97.2 87 18 104/69 (81) 98 10/04/18 10:56 97.7 10/04/18 10:11 106 111/94 10/04/18 09:00 Room Air 10/04/18 08:00 97.7 106 18 111/59 (76) 97 10/04/18 04:00 98.5 103 19 97/47 (64) 97 10/04/18 00:00 98.4 100 19 122/81 (95) 97 10/03/18 21:00 Room Air 10/03/18 20:00 97.6 100 17 117/78 (91) 96 10/03/18 17:56 101 131/82 Height (Feet): 6 Height (Inches): 1.00 Weight (Pounds): 229 Objective General Appearance: well appearing, no apparent distress, other - Somnolent Head: normocephalic, atraumatic Eyes: bilateral eye PERRL, bilateral eye EOMI ENT: hearing grossly normal, normal pharynx Neck: full range of motion, supple, no meningismus Respiratory: chest non-tender, lungs clear, normal breath sounds Cardiovascular #1: regular rate, rhythm, no murmur Gastrointestinal: normal bowel sounds, non tender, no mass, no organomegaly, no bruit, non-distended Musculoskeletal: back normal, normal range of motion, other - Right forearm: There is a 4 cm laceration to the mid forearm. No foreign body. No tendon involvement. Left upper forearm: Small superficial skin abrasion. Psychiatric: mood/affect sandra Current Medications Medications (Trade) Dose Ordered Sig/Ana Route PRN Reason Start Time Stop Time Status Last Admin Dose Admin Bupropion HCl (Wellbutrin XL) 450 mg DAILY ORAL 09/28/18 12:00 10/28/18 11:59 10/04/18 10:10 Buspirone HCl (Buspar) 30 mg THREE TIMES A DAY ORAL 10/03/18 18:00 11/02/18 17:59 10/04/18 13:13 Chlordiazepoxide (Librium) 25 mg Q6H PRN ORAL Agitation 09/28/18 06:50 10/05/18 06:49 10/04/18 01:23 Dextrose (Dextrose 50%) 25 ml Q30M PRN IV Hypoglycemia 09/28/18 07:00 10/28/18 06:59 Dextrose (Dextrose 50%) 50 ml Q30M PRN IV Hypoglycemia 09/28/18 07:00 10/28/18 06:59 Folic Acid 1 mg/ Magnesium Sulfate 2000 mg/ Multivitamins 10 ml/Potassium Chloride/Sodium Chloride 1,014.2 ml @ 124.876 mls/hr Q24H IV 09/28/18 09:00 10/28/18 08:59 10/02/18 10:20 Heparin Sodium (Porcine) (Heparin 5000 units/ml) 5,000 units EVERY 12 HOURS SUBQ 09/28/18 09:00 10/28/18 08:59 09/28/18 21:06 Lorazepam (Ativan 2mg/ml 1ml) 2 mg Q1H PRN IV seizures 09/28/18 07:00 10/05/18 06:59 Magnesium Hydroxide (Mom) 30 ml DAILYPRN PRN ORAL Constipation 09/28/18 11:00 10/28/18 10:59 Morphine Sulfate (Morphine Sulfate) 1 mg Q4H PRN IVP For Pain 09/28/18 07:00 10/05/18 06:59 10/04/18 10:26 Nicotine (Nicoderm) 1 patch DAILY TDERMAL 09/29/18 09:00 10/29/18 08:59 Ondansetron HCl (Zofran) 4 mg Q6H PRN IVP Nausea & Vomiting 09/28/18 07:00 10/28/18 06:59 Polyethylene Glycol (Miralax) 17 gm HSPRN PRN ORAL Constipation 09/28/18 07:00 10/28/18 06:59 Propranolol HCl (Inderal) 10 mg BID ORAL 09/28/18 18:00 10/28/18 17:59 10/04/18 10:11 Quetiapine Fumarate (SEROquel) 300 mg 0900,1700,2100 ORAL 09/29/18 09:00 10/29/18 08:59 10/04/18 10:10 Thiamine HCl 100 mg/Dextrose 56 ml @ 112 mls/hr Q24H IVPB 09/28/18 09:00 10/28/18 08:59 10/02/18 10:20 Zolpidem Tartrate (Ambien) 5 mg HSPRN PRN ORAL Insomnia 09/28/18 07:00 10/05/18 06:59 10/04/18 02:16 Dorys Duke M.D. Oct 04, 2018 13:30
--- NOTE | 2018-10-04 13:58 | Cardiology Report ---
APPROVED REPORT EKG Measurement Heart [id number] MA [id number] Normal sinus rhythm Normal ECG
--- NOTE | 2018-10-04 14:46 | NUR ---
*-* INSURANCE *-* UPDATED CLINICALS HAVE BEEN FAXED TO: [facility] PLEASE FAX THE REVIEW/CLINICAL NO MANAGER CLINICAL INFORMATICS ASSIGNED AT THIS TIME P- [phone] F- [phone]...REVIEW/CLINICAL
[2018-10-04 16:00] VITALS: BP 124/91
--- NOTE | 2018-10-04 16:10 | General Progress Note ---
Assessment/Plan Problem List: (1) Psychosis ICD Codes: F29 - Unspecified psychosis not due to a substance or known physiological condition SNOMED: 31436111 (2) Alcohol intoxication ICD Codes: F10.929 - Alcohol use, unspecified with intoxication, unspecified SNOMED: 91738663 Qualifiers: Qualified Codes: F10.920 - Alcohol use, unspecified with intoxication, uncomplicated (3) Agitation ICD Codes: R45.1 - Restlessness and agitation SNOMED: 202777660 (4) Laceration of forearm, right ICD Codes: S51.811A - Laceration without foreign body of right forearm, initial encounter SNOMED: 78920979799630598 Qualifiers: Qualified Codes: S51.811A - Laceration without foreign body of right forearm , initial encounter Status: stable, progressing Assessment/Plan: wound care detox dc to snf if psyc clear Subjective Constitutional: Reports: weakness Allergies: Coded Allergies: ACETAMINOPHEN (Verified Allergy, Unknown, 09/27/18) HALOPERIDOL (Verified Allergy, Unknown, 09/27/18) All Systems: reviewed and negative except above Subjective sl anxious in room Objective Last 24 Hour Vital Signs Date Time Temp Pulse Resp B/P (MAP) Pulse Ox O2 Delivery O2 Flow Rate FiO2 10/04/18 12:00 97.2 87 18 104/69 (81) 98 10/04/18 10:56 97.7 10/04/18 10:11 106 111/94 10/04/18 09:00 Room Air 10/04/18 08:00 97.7 106 18 111/59 (76) 97 10/04/18 04:00 98.5 103 19 97/47 (64) 97 10/04/18 00:00 98.4 100 19 122/81 (95) 97 10/03/18 21:00 Room Air 10/03/18 20:00 97.6 100 17 117/78 (91) 96 10/03/18 17:56 101 131/82 Intake and Output 10/03/18 10/04/18 19:00 07:00 Intake Total 500 ml Balance 500 ml Intake Oral 500 ml # Voids 3 6 Height (Feet): 6 Height (Inches): 1.00 Weight (Pounds): 229 General Appearance: alert EENT: normal ENT inspection Neck: normal alignment Cardiovascular: normal peripheral pulses, normal rate, regular rhythm Respiratory/Chest: chest wall non-tender, lungs clear, normal breath sounds Abdomen: normal bowel sounds, non tender, soft Extremities: normal inspection Edema: no edema noted Arm (L), no edema noted Arm (R), no edema noted Leg (L), no edema noted Leg (R), no edema noted Pedal (L), no edema noted Pedal (R), no edema noted Generalized Neurologic: responsive, motor weakness Skin: normal pigmentation, warm/dry Javier Medina DO Oct 04, 2018 16:10
--- NOTE | 2018-10-04 16:12 | NUR ---
DISCHARGE PLANNED PT WILL DC TO [facility] ROOM: HOUSE 8D SKILLED T [phone] FOR NURSE TO NURSE REPORT [facility] WILL PICK AT [phone]
--- NOTE | 2018-10-04 18:15 | Progress Note ---
DATE: 10/04/2018 NOTE: POOR AUDIO SUBJECTIVE: This is a 33-year-old male with alcohol intoxication, agitation, he has bipolar disorder. He has extreme mood lability. Today, he is asking for more doses of BuSpar anxious in the hospital, high dose of BuSpar, he is already on 30 mg twice a day. He does state " very anxious ." He denies suicidal or homicidal thoughts. He gets very agitated and irritable intermittent times throughout his hospital course. MENTAL STATUS EXAMINATION: This is a 33-year-old male. Appearance is disheveled. Attitude, irritable and agitated. Affect, guarded and restricted. Intellect, poor. Mood, depressed and anxious. Motor activity, psychomotor agitation. Attention span is poor. Orientation x2. Speech pressured. Thought process, disorganized and illogical. Insight and judgment is poor. DIAGNOSIS: Bipolar 2. PLAN: Psychotropic medications to stabilize his mood. Continue treatment with Seroquel nightly, Wellbutrin XL 450 mg daily, BuSpar 30 mg three times a day. A 20 minutes of cognitive behavioral therapy provided to help him identify his automatic negative thoughts, help him convert his negative thoughts to more positive thoughts to reduce depression, anxiety, and mood lability. Chart reviewed. Discussed with staff. Seen and assessed in his room. Andry Julien M.D. DR: YELENA JOB#: [id number] CC:
[2018-10-04 20:00] VITALS: BP 125/79
--- NOTE | 2018-10-04 20:25 | NUR ---
NURSE NOTES: PATIENT IS AWAKE, ALERT, VERBALLY RESPONSIVE, AMBULATORY. IV IN PLACE. NO S/S DISTRESS NOTED. NO COMPLAINTS OF PAIN AT THIS TIME. BED IN LOWEST POSITION, CALL LIGHT WITHIN REACH. WILL CONTINUE TO MONITOR.
--- NOTE | 2018-10-04 20:26 | NUR ---
HAND-OFF: Report given to MAN Martinez. Addendum: 10/04/18 at 2028 by Forest uLcia RN Report given to MAN paez
--- NOTE | 2018-10-04 20:27 | NUR ---
NURSE NOTES: handoff given to HALEIGH at the [facility].
--- NOTE | 2018-10-04 20:29 | NUR ---
NURSE NOTES: PATIENT FOR DISCHARGE TO [facility]. AM NURSE, MAN PYLE GAVE REPORT TO FACILITY. CALLED [facility] AND SPOKE WITH ROXANN HAYDEN FOR PAINTINGS CONSERVATOR IS [phone]. CHARGE NURSE AWARE.
--- NOTE | 2018-10-04 21:58 | NUR ---
DISCHARGE NURSE NOTES: PATIENT DISCHARGED, STABLE CONDITION VIA AMBULANCE. IV REMOVED. REVIEWED PATIENT BELONGINGS AND PATIENT LEFT WITH BELONGINGS. PATIENT NO LONGER WEARING ID BAND.
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
--- NOTE | 2018-10-05 14:04 | NUR ---
*-* INSURANCE *-* DISCHARGE SUMMARY HAVE BEEN FAXED TO: [facility] PLEASE FAX THE REVIEW/CLINICAL NO DEMONSTRATOR SEWING TECHNIQUES ASSIGNED AT THIS TIME P- [phone] F- [phone]...REVIEW/CLINICAL
--- NOTE | 2018-10-05 19:15 | Progress Note ---
DATE: 10/05/2018 PSYCHOTHERAPY CONSULTATION PROGRESS NOTE HISTORY OF PRESENT ILLNESS: This is a 33-year-old male patient. The patient is less agitated and irritable. He is alert and oriented to person, place, time and situation. He is no longer confused, wants to wait for placement. He states that earlier he was agitated and asking to leave; however he states he needs to give up the housing. The patient remained in the hospital for further treatment The patient states that he would like to go back to the [facility] Mood is depressed and anxious and he is less irritable. Alert and oriented to place, person, time, and situation. His mood is Affect is congruent. Thought process is linear. He has fair attention and concentration. Fair insight, judgment, and impulse control. 1. I provided the patient with supportive psychotherapeutic which provide patient with emotional outlet and means to cope with emotional distress. 2. I provided with cognitive behavioral therapy, which is focused on problems that may involve patterns of thinking and acting that are problematic. 3. I provided the patient with reality orientation, positive coping skills to reduce his anxiety and irritability. PLAN: Plan is to maintain medication compliance, discussing for positive coping skills, and stabilizing the thoughts and behavior. Psychotherapy was provided to the patient. This clinician has reviewed the patient's chart. Discussed the treatment with treatment team. Gissel Ireland PsyD. : [facility] JOB#: [id number] CC:
--- NOTE | 2018-10-05 23:30 | Progress Note ---
DATE: 10/04/2018 PSYCHOTHERAPY CONSULTATION PROGRESS NOTE TREATING ATTENDING PHYSICIAN: Javier Medina D.O. HISTORY OF PRESENT ILLNESS: This is a 33-year-old male patient. The patient is less agitated and irritable. He is alert and oriented to person, place, time and situation. He is no longer confused, wants to wait for placement. He states that earlier he was agitated and asking to leave; however, he states that he needs to give up the housing and remain in the hospital for further treatment until . The patient states that he would like to go back to [facility] with the acceptance that his mood is less anxious and he is less irritable. Continues to medication from the nursing staff. Alert and oriented to place, person, time, and situation. His mood is anxious. Affect is congruent. Thought process disorganized. Thought content linear. He has fair attention and concentration. Fair insight, judgment, and impulse control. 1. I provided the patient with supportive psychotherapy which provide patient with emotional outlet and means to cope with emotional distress. 2. I also provided the patient with cognitive behavioral therapy, which can help with a range of problems that may involve patterns of thinking and acting that are problematic. 3. Assist with rational and reality based thoughts, thinking strategies and positive coping skills to reduce his anxiety and irritability. 4. . PLAN: Plan is to maintain medication compliance, discussed positive coping skills, and stabilizing the thoughts and behavior. Psychotherapy was provided to the patient. Discussed the treatment with treatment team. Gissel Ireland PsyD. DR: Belkis JOB#: [id number] CC:
== END 2018-10-04 21:55 | DRG 605 ==
LOC: EDBD 23:40 → EMR 23:50 → EDBEDREQ 09-28 02:22 → 4E 09-28 02:41 → EDBEDREQ 09-28 03:01
PROC: 0HQBXZZ Repair Right Upper Arm Skin, External Approach (ICD-10-PCS; principal; 2018-09-28)
DX: S51.811A Laceration without foreign body of right forearm, initial encounter (principal); F10.24 Alcohol dependence with alcohol-induced mood disorder; F31.81 Bipolar II disorder; K70.10 Alcoholic hepatitis without ascites; F29 Unspecified psychosis not due to a substance or known physiological condition; X78.0XXA Intentional self-harm by sharp glass, initial encounter; Y92.129 Unspecified place in nursing home as the place of occurrence of the external cause; Z88.6 Allergy status to analgesic agent; Z88.8 Allergy status to other drugs, medicaments and biological substances; F12.10 Cannabis abuse, uncomplicated; F17.200 Nicotine dependence, unspecified, uncomplicated; G62.9 Polyneuropathy, unspecified; I10 Essential (primary) hypertension; J44.9 Chronic obstructive pulmonary disease, unspecified; R45.1 Restlessness and agitation
CPT/HCPCS: 36415; 80048; 80053; 80307; 80329; 81003; 85025; 87081; 93005; 99285; J8499